=== PATIENT | female | born 1955 | race Caucasian/White ===

== ENCOUNTER 2024-08-25 15:08 | Inpatient (IN) | payer MEDICARE, MEDICAID, SELFPAY ==
[2024-08-25] VITALS (14 sets, daily range): BP systolic 132–216; BP diastolic 78–124; PULSE 78–124; RESP 16–18; TEMP 36.6–37.3; O2SAT 92–100
--- NOTE | ~2024-08-25 | XR_ITS ---
XR chest 1V portable Ordering provider: Johnathan Gallaghre MD History: 69 years Female with . weakness . Comparison: None. FINDINGS: MEDIASTINUM: The cardiac silhouette is not enlarged. LUNGS: No effusions or pneumothorax. Opacity is seen in the left perihilar area in the upper lobe whi ch may be focal pneumonia or a mass. Underlying emphysematous changes are noted OTHER: No free air under the diaphragm. IMPRESSION: Opacity in the left upper lobe which may be focal pneumonia versus a mass. Further evaluation advised Reviewed, dictated and finalized at location A. IMPRESSION: Opacity in the left upper lobe which may be focal pneumonia versus a mass. Furt her evaluation advised
--- NOTE | ~2024-08-25 | MR_ITS ---
EXAMINATION: MR thoracic spine wo/w con DATE: 08/28/2024 15:19 INDICATION: Leg weakness. Possible metastatic disease. TECHNIQUE: Magnetic resonance imaging (MRI) of the thoracic spine was performed without and with 10 m L Multihance intravenous contrast. Sagittal localizer T1-weighted FSE of the cervicothoracic spine wa s obtained. Sequences included sagittal T2-weighted FSE, sagittal T2-weighted FS FSE, sagittal T1-mitchel ghted FSE and axial T1-weighted SE. Postcontrast sequences included axial T2-weighted FSE, sagittal T 1-weighted FS FSE, and axial T1-weighted FS SE. COMPARISON: CT dated 08/25/2024 FINDINGS: Alignment is normal.Vertebral body heights are normal. There is mild disc height loss at multiple lev els from T2-T3 through T8-T9 and moderate disc height loss with mild anterior degenerative endplate c hanges at T9-T10. There is an expansile destructive an enhancing marrow replacing processes consistent with metastatic disease. These include at the T1 vertebral body extending into the left-sided posterior elements and extraosseous extension into the left side of the epidural space resulting in moderate central canal s tenosis, and the left C7-T1 and T1-T2 neural foramina with severe neural foraminal stenosis and into the adjacent posterior left T1-T2 intercostal space and into the immediately adjacent subpleural soft tissues. Additional large lesion at T8 extending into the left-sided posterior elements and the adjacent poste rior aspect of the left eighth rib. There is also significant extraosseous extension including in the epidural space resulting in significant mass effect on the left side of the thecal sac with severe c entral canal stenosis from the inferior midportion of T7 to the midportion of T9. The mass completely fills the T7-T8 and T8-T9 neural foramina and extends laterally to involve of the T7-T8 and T8-T9 po sterior intercostal spaces, the overlying chest wall and with deeper subpleural involvement. The bone lesions and surrounding soft tissue mass measure 9.3 cm medial to lateral, 6.0 cm craniocaudally and 6.1 cm AP. There is increased T2 cord signal extending short distance proximal and distal to the reg ion of severe stenosis Finally there is a smaller lesion involving the posterior right ninth rib with extraosseous extension from the T9-T10 neural foramen and extending into the adjacent subpleural right paraspinal soft tiss ues. IMPRESSION: 1. The marrow replacing lesions consistent with metastatic disease centered at T1, T8 and T9 with pro minent extraosseous extension. This most notable for secondary moderate central canal stenosis at T1, severe at T7-T9 and severe neural foraminal stenosis on the left at T1-T2, C7-T1 and T1-T2 as well a s at T7-T8 and T8-T9 and on the right at T9-T10. 2. Increased cord signal at T7 and T9 on either side of the severe central canal stenosis. 3. Otherwise mild to moderate thoracic spondylosis. Reviewed, dictated and finalized at location B. IMPRESSION: 1. The marrow replacing lesions consistent with metastatic disease centered at T1, T8 and T9 with prominent extraosseous extension. This most notable for seco ndary moderate central canal stenosis at T1, severe at T7-T9 and severe neural foraminal stenosis on the left at T1-T2, C7-T1 and T1-T2 as well as at T7-T8 an d T8-T9 and on the right at T9-T10. 2. Increased cord signal at T7 and T9 on either side of the severe central celi l stenosis. 3. Otherwise mild to moderate thoracic spondylosis.
--- NOTE | ~2024-08-25 | CT_ITS ---
CT abdomen pelvis wo/w con Ordering provider: Jonathan Nguyen MD History: 69 years Female with . hydronephrosis and possible liver mass . Comparison: None. Technique: CT abdomen and pelvis with IV and without oral contrast. Automated exposure control and it erative reconstruction technique were employed. The dose-length product was 413.10 mGy-cm. 100 mL Omn ipaque 350 was given IV. Findings: VISUALIZED LOWER CHEST: Underlying emphysematous changes. Dependent atelectatic changes. UPPER ABDOMINAL ORGANS: Liver: Hypodensity seen in the right lobe of the liver segment 8 measuring 1.6 x 1.4 cm. Another one is seen in segment #4 measuring 2 cm x 1.6 cm. Another one is also noted in the right lobe of the jose cruz er segment #7 measuring 1 cm which raises the possibility of metastatic lesions. Ultrasound evaluatio n to confirm the solid versus cystic nature. Gallbladder: Normal. Spleen: Normal. Stomach/duodenum: Normal. Pancreas: Normal. Adrenals: Normal. Kidneys: Bilateral moderate hydronephrotic changes PELVIC ORGANS: The bladder is shows thickened wall. Palomo's catheter is seen in the bladder with air. BOWEL AND MESENTERY: Colon: No evidence of diverticulitis. Fecal material is loaded in the colon.. Normal appendix. Small Bowel: Slightly thickened wall of the jejunal loops which may indicate enteritis. Clinical nohemy elation advised. No obstruction. Peritoneum/mesentery: No free air or free fluid. No mesenteric lymphadenopathy. RETROPERITONEUM: Mild atheromatous disease of the abdominal aorta. Prominent vessels are seen in bot h sides of the pelvis suggestive of pelvic congestion syndrome. No retroperitoneal lymphadenopathy. MUSCULOSKELETAL: Superficial soft tissues: Soft tissue density is seen in the anterior abdominal wall measuring 1.4 cm . Otherwise, The superficial soft tissues are normal. Bones: Age appropriate degenerative changes of the spine. Multiple hypodensities in the vertebrae and iliac bones which may indicate osteopenia versus metastatic lesions. Multiple myeloma should be cons idered. Follow-up oBone scan is advised for further evaluation. IMPRESSION: 1. No evidence of appendicitis, diverticulitis or intestinal obstruction. 2. Multiple hypodensities in the liver which are highly suggestive of metastatic lesions. Further ev aluation advised. 3. Bilateral hydronephrotic changes with thickened wall of the urinary bladder. 4. Thickened wall of the jejunal small bowel loops suggestive of enteritis. 5. Multiple hypodensities in the bones which may indicate osteopenia versus metastatic lesions versu s multiple myeloma. Further evaluation advised. 6. Constipation. 7. Congested vessels in the pelvis suggestive of pelvic congestion syndrome. Reviewed, dictated and finalized at location A. IMPRESSION: 1. No evidence of appendicitis, diverticulitis or intestinal obstruction. 2. Multiple hypodensities in the liver which are highly suggestive of metastat ic lesions. Further evaluation advised. 3. Bilateral hydronephrotic changes with thickened wall of the urinary bladder . 4. Thickened wall of the jejunal small bowel loops suggestive of enteritis. 5. Multiple hypodensities in the bones which may indicate osteopenia versus me tastatic lesions versus multiple myeloma. Further evaluation advised. 6. Constipation. 7. Congested vessels in the pelvis suggestive of pelvic congestion syndrome.
--- NOTE | ~2024-08-25 | MR_ITS ---
EXAMINATION: MR lumbar spine wo con DATE: 08/27/2024 13:12 INDICATION: leg weakness, possible metastatic CA . TECHNIQUE: Magnetic resonance imaging (MRI) of the lumbar spine was performed without intravenous con trast. Sequences included sagittal T2-weighted FSE, sagittal T2-weighted FS FSE, sagittal T1-weighted FSE, and axial T2-weighted FSE. Originally ordered with contrast however the patient could not carmen ate complete examination. COMPARISON: CT abdomen and pelvis 08/26/2024 FINDINGS: The last fully formed and hydrated disc is designated L5-S1. T1 hypointense marrow lesion i nvolving the right L4 pedicle extending into the bilateral inferior articulating facets and spinous p rocess. Conus terminates at L1-2. Multilevel loss of disc hydration. Lobulated 2.3 x 1.1 cm extradura l lesion posteriorly at the level of L4, intermediate signal intensity on STIR and T2 and low signal intensity on T1. The following disc levels are specifically discussed: T11-T12: The disc does not extend beyond the endplate margin. There is no facet joint osteoarthritis. There is no neural foraminal stenosis. There is no central canal stenosis. T12-L1: The disc does not extend beyond the endplate margin. There is mild facet joint osteoarthritis . There is no neural foraminal stenosis. There is no central canal stenosis. L1-L2: Mild diffuse bulge. There is mild facet joint osteoarthritis. There is no neural foraminal srikanth nosis. There is no central canal stenosis. L2-L3: Mild diffuse bulge. There is moderate facet joint osteoarthritis. There is mild bilateral neur al foraminal stenosis. There is no central canal stenosis. L3-L4: Mild diffuse bulge. There is moderate facet joint osteoarthritis. There is mild bilateral neur al foraminal stenosis. There is no central canal stenosis. L4-L5: Moderate diffuse bulge. There is moderate facet joint osteoarthritis. There is moderate bilate ral neural foraminal stenosis. There is mild central canal stenosis. L5-S1: Minimal diffuse bulge. There is moderate facet joint osteoarthritis. There is mild neural fora leoncio stenosis. There is no central canal stenosis. IMPRESSION: Metastatic lesion involving the posterior elements of L4, with extradural extension. Reviewed, dictated and finalized at location K. IMPRESSION: Metastatic lesion involving the posterior elements of L4, with extradural exten dylon.
--- NOTE | ~2024-08-25 | CT_ITS ---
CT brain wo con Ordering provider: Johnathan Gallagher MD History: 69 years Female with . weakness . Comparison: None. Technique: CT of the head without contrast. Radiation reduction technique utilized.The dose-length pr oduct was 681 mGy-cm. FINDINGS: BRAIN PARENCHYMA AND CSF SPACES: Mild leukoaraiosis and diffuse cortical atrophy. Mild atheromatous d isease. No midline shift, mass effect or hemorrhage. The brain parenchyma and CSF spaces are otherwi se normal. VISUALIZED PARANASAL SINUSES: Well aerated. MASTOIDS: Well aerated. BONES: The bones appear intact. SOFT TISSUES: Visualized nasopharynx is normal. Superficial soft tissues are normal. IMPRESSION: No acute intracranial findings. Reviewed, dictated and finalized at location A.
--- NOTE | ~2024-08-25 | CT_ITS ---
CT diagnostic chest wo con Ordering provider: Johnathan Gallagher MD History: 69 years Female with . mass? . Comparison: None. Technique: CT chest without IV contrast. Radiation reduction technique utilized.The dose-length product was 155.47 mGy-cm. FINDINGS: VISUALIZED THORACIC INLET: Normal. MEDIASTINUM: Aorta/coronary arteries: Mild atheromatous disease. Heart/other: The heart is not enlarged. Lymph nodes: No mediastinal or hilar adenopathy. Precarinal lymph node measuring 1 cm. LUNGS: Pleural based mass is seen in the left lower lobe superior segment with adjacent 8th rib destr uction suggestive of malignancy which measures 7.5 x 3.1 x 5.3 cm. No infiltrates or effusions. No pn eumothorax. VISUALIZED UPPER ABDOMEN: Hyperdensity in the right lobe of the liver measuring 1.4 cm which may be a mass. Further evaluation advised. Bilateral hydronephrotic changes. Sella Otherwise, the visualized upper abdomen is normal. MUSCULOSKELETAL: Soft tissues: The superficial soft tissues are normal. Bones: Age appropriate degenerative changes of the spine. Sclerotic changes in the 1st thoracic vert ebra. Further evaluation advised. IMPRESSION: 1. No acute cardiopulmonary pathology. 2. Mass adjacent to the left eighth rib destruction which may be metastatic versus mesothelioma. Fur ther evaluation advised. 3. Hypodensity in the liver which is highly suggestive of a mass. Further evaluation advised. 4. Bilateral hydronephrotic changes. 5. Sclerotic changes in the first thoracic vertebra suggestive of metastatic lesion. Further evaluat ion advised. Reviewed, dictated and finalized at location A. IMPRESSION: 1. No acute cardiopulmonary pathology. 2. Mass adjacent to the left eighth rib destruction which may be metastatic ve rsus mesothelioma. Further evaluation advised. 3. Hypodensity in the liver which is highly suggestive of a mass. Further eval uation advised. 4. Bilateral hydronephrotic changes. 5. Sclerotic changes in the first thoracic vertebra suggestive of metastatic l esion. Further evaluation advised.
--- OUTSIDE RECORDS SUMMARY | 2024-08-25 15:10 | XMS_ITS | Continuity of Care Document ---
Author Organization [facility] Address [address] [place] [address] Phone Care Team Providers Care Rehabilitation Supervisor Name Role Phone Villasenor OD, Javi Unavailable Unavailable Advance Directives Directive Yes / No Effective Date File Name No Information Encounters Encounter Description Practice Location Reason(s) For Visit Diagnoses Date Provider Providers Copied on Encounter [facility], [address], [place], [place], [id number], [place] tel:[phone] [facility] No Information Nov-2 6-200 5 Villasenor OD Javi. [address] [facility] , [address], [place], [address], [place]. tel:[phone] Family History Family Member Type Diagnosis Age At Onset No Information Payers Payer name Insurance type Covered green party ID Authoriza tion(s) Medicaid [facility] [id number] Social History Type Description Quantity Date Captured Comments Sex Female Smoking Status No Information Chief Complaint And Reason For Visit No Information Reason For Referral Reason For Referral No Information History Of Present Illness Encounter Date Complaint History Of Prese nt Illness No Information Functional Status Date Functional Assessmen t No Information Instructions Date Instruction Additional Infor mation No Information Assessments Type Assessment Date No Information Patient Care Teams Name Effective Dates (start - stop) Status Members No Information
--- OUTSIDE RECORDS SUMMARY | 2024-08-25 15:10 | XMS_ITS | Clinical Summary ---
Author Organization [facility] Address [address] [place] [address] Care Team Providers Care Central Control Room Operator Name Role Phone Patti Cole APRN Primary Care Provider [phone] Allergies Active Allergy Reactions Criticality Noted Date Comments Codeine 08/07/2023 Egg-Derived Products 08/07/2023 Peanut-Containing Drug Products 07/24 Medications albuterol HFA (PROVENTIL HFA;VENTOLIN HFA) 108 (90 Base) MCG/ACT inhaler INHALE 2 PUFFS BY MOUTH THREE TIMES DAILY FOR 10 DAYS NEEDED Active budesonide-form oterol (SYMBICORT) 80-4.5 MCG/ACT inhaler Inhale 2 puffs in the morning and 2 puffs in the evening. Active spironolactone (ALDACTONE) 25 MG tablet Take 25 mg by mouth 1 (one) time each day if needed (swelling) Active rosuvastatin (CRESTOR) 5 MG tablet Take 1 tablet (5 mg total) by mouth 1 (one) time each day 90 tablet 1 09/15/2023 Active Active Problems Problem Noted Date Diagnosed Date Mixed hyperlipidemia 09/15/2023 H/O: multiple allergies 08/11/2023 Stage 1 chronic kidney disease 08/11/2023 Hypo-osmolality and hyponatremia 08/11/2023 Edema 08/11/2023 Hypertension 08/11/2023 Requires continuous home oxygen supply Chronic respiratory failure with hypoxia 024 Dental caries extending into dentin 08/11/2023 Dyspnea 08/06/2023 Chronic obstructive pulmonary disease 03/09/2018 Resolved Problems Problem Noted Date Diagnosed Date Resolved Date 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 Encounters Date Type Department Care Team Description 06/27/2024 [facility] Only [facility] [address] [address] 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, 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 Hypo-osmolality and hyponatremia (Primary Dx); Stage 1 chronic kidney disease; Hypertension; Mixed hyperlipidemia; Abnormal finding of blood chemistry, not otherwise specified; Urinary tract infection, not otherwise specified from Last 3 Months Social History Tobacco Use Types Packs/Day Years Used Date Smoking Tobacco: Never Assessed Comments Unknown Sex and Gender Information Value Date Recorded Sex Assigned at Not on file Legal Sex Female 11:48 AM EDT Gender Identity Not on file Sexual Orientation Not on file Last Filed Vital Signs Vital Sign Reading Time Taken Comments Blood Pressure 120/70 09/15/2023 10:46 AM CDT Pulse 68 09/15/2023 10:46 AM CDT Temperature 36.1 C (97 F) 09/15/2023 10:46 AM CDT Respiratory Rate 18 09/15/2023 10:46 AM CDT Oxygen Saturation 97% 09/15/2023 10:46 AM CDT Inhaled Oxygen Concentration - - Weight 49 kg (108 lb) 09/15/2023 10:46 AM CDT Height - - Body Mass Index - - Plan of Treatment Health Maintenance Due Date Last Done Comments Breast Cancer Screening 1955 Pneumococcal Vaccine: 50+ Ye ars (1 of 2 - PCV) 1972 Colorectal Cancer Screening: Annual FOBT 2002 Colorectal Cancer Screening: Colonoscopy 2002 Colorectal Cancer Screening: Sigmoidoscopy 2002 Influenza Vaccine (#1) 2024 Hepatitis B Vaccine Aged Out No longe r eligible based on patient's age to complete this topic Insurance Medicare Medicaid [place] Care Teams Central Control Room Operator Relationship Specialty Start Date End Date Patti Cole APRN [facility] Internal Med [facility] [address] [facility], [address] [place] [address] PCP - General 06/18/23
--- OUTSIDE RECORDS SUMMARY | 2024-08-25 15:10 | XMS_ITS | Data Portability ---
Author Organization [facility] Address [address] [place] [address] Assessment No assessment recorded. Plan of Treatment Reminders Order Date Submit Date Provider Last Modified By Organization Details Last Modified Time Details Appointments None recorded . Lab lipid panel, serum 2019 020 [facility], [address] [place] [address], [facility] [address], [place], [address], 0 14:10:42 HbA1c (hemoglo bin A1c), blood 2019 020 [facility], [address] [place] [address], [facility] [address], [place], [address], 0 14:14:45 TSH + free T4, serum 2019 020 [facility], [address] [place] [address], [facility] [address], [place], [address], 0 14:46:14 CBC w/ auto diff 2019 020 [facility], [address] [place] [address], [facility] [address], [place], [address], 0 14:09:40 CMP, serum or plasma 2019 020 [email or web address] [facility], [address] [place] [address], [facility] [address], [place], [address], 0 13:37:07 vitamin D, 25-hydro xy, total, serum 2019 020 [address], [address], [place], [address], 0 14:09:40 vitamin B12 + folate, serum or blood 2019 020 [address], [address], [place], [address], 0 14:09:41 iron + total iron-bin ding capacity (TIBC), serum 2019 020 [address], [address], [place], [address], 0 14:09:41 ferritin , serum or plasma 2019 020 [address], [address], [place], [address], 0 14:10:11 CBC w/ auto diff 2018 019 Celeste [address], [address], [place], [address], 9 16:48:07 erythroc yte sediment ation rate by westergr en method 2018 019 [address], [address], [place], [address], 9 16:48:07 C reactive protein, QN, serum or plasma 2018 019 [address], [address], [place], [address], 9 16:48:05 CMP, serum or plasma 2018 019 [email or web address], [address] [facility] [address], [address], [place], [address], 9 09:58:47 JAMIL (antinuc lear antibodi es) screen, serum 2018 019 [facility], [address] [place] [address] [address], [address], [place], [address], 9 16:48:04 rf (rheumat oid factor), serum 2018 019 [facility], [address] [place] [address], [address], [place], [address], 9 16:48:04 TSH, ultra-se nsitive, serum 2018 019 [facility], [address] [facility] [address], [address], [place], [address], 9 16:48:07 vitamin D, 25-hydro xy, total, serum 2018 019 [facility], [address] [place] [address], [address], [place], [address], 9 16:48:07 vitamin B12 + folate, serum or blood 2018 019 [facility], [address] [place] [address], [address], [place], [address], 9 16:48:06 CK (creatin e kinase), total, serum 2018 019 [facility], [address] [place] [address], [address], [place], [address], 9 16:48:07 lipid panel, serum 2018 019 [facility], [address], [address], [place], [address], 9 16:47:16 Referral rheumato logist referral - Please call patient to schedule appt. Thank you 2018 019 [facility] Care Physician Referral Management, [address] [facility], [address], [place], [address], 9 11:17:04 allergis t referral - Please eval and treat . Thank you 2018 019 [email or web address] Not available 07:52:18 physical therapy back referral - Please call patient to schedule appt. Thank you 2018 019 [facility] Physical, Occupational & Speech Medicine & Rehab, [address] [place], [address], 9 10:33:52 endocrin ology referral - She is worried about Hashimot o's Please eval and teat 2018 019 [facility] [place], [address] , [place], [address], 9 10:14:06 pulmonol ogist referral - Please call patient to schedule appt. Thank you 2017 018 [facility] Pulmonology, [address] [facility], [place], [address], 9 11:10:38 Procedures None recorded . Surgeries None recorded . Imaging None recorded . Medication Orders budesoni de-formo terol HFA 80 mcg-4.5 mcg/actu ation aerosol inhaler 2019 020 [facility]30257, [address], [place], [place], [id number], 0 14:08:38 loratadi ne 10 mg tablet 2018 019 [facility] #94423, [address], [place], [place], [id number], 0 13:57:03 bupropio n HCl XL 150 mg 24 hr tablet, extended release 2018 019 [facility] #95999, [address], [place], [place], [id number], 0 13:56:27 Symbicor t 160 mcg-4.5 mcg/actu ation HFA aerosol inhaler 2018 019 [facility] #02114, [address], [place], [place], [id number], 9 16:56:48 Ventolin HFA 90 mcg/actu ation aerosol inhaler 2018 019 [facility] #79072, [address], [place], [id number], 9 16:56:49 loratadi ne 10 mg tablet 2018 019 [facility] #11346, [address], [place], [id number], 0 13:57:03 Chantix Starting Month Box 0.5 mg (11)-1 mg (42) tablets in dose pack 2018 019 [facility] #10384, [address], [place], [place], [id number], 0 13:56:32 triamcin olone acetonid e 0.1 % topical ointment 2018 019 [facility], [address] , [place], [place], [id number], 0 13:57:13 loratadi ne 10 mg tablet 2017 018 [email or web address] Not available 0 13:57:03 Advair Diskus 250 mcg-50 mcg/dose powder for inhalati on 2017 019 [email or web address] Not available 9 16:20:59 Lyrica 50 mg capsule 2015 016 [facility], [address] , [place], [place], [id number], 8 16:48:15 Patient TargetsNo targets recorded. Patient InstructionsNo instructions recorded. Reason for Referral Credit Card Control Clerk Referral for D yspnea Please call patient to schedule appt. Thank you Referring Physician: Family Carroll Maloney, Encounter Date: 02/19/2018 Please call patient to sched ule appt. Thank you Referring Physician: Family Carroll Maloney, Encounter Date: 06/25/2018 Lens Grinder Referral for Fibromyalgia fibromyalgia Please call patient to schedule appt. Thank you Referring Physician: Family Carroll Maloney, Encounter Date: 06/25/2018 Endocrinology Referral for Zena morillo she [place] She is worried about Neptali's Please eval and teat Referring Physician: Family Carroll Maloney, Encounter Date: 06/25/2018 Window And Door Installer Referral for Aller gic rhinitis she is sensitive to a number of chemicals : fragrances Please eval and treat . Thank you Referring Physician: Family Carroll Maloney, Encounter Date: 06/25/2018 Results Created Date Observation Date Name Description Value Unit Range Abnormal Flag Note LastModifiedBy Organization Detail LastModifiedTime 10/14/19 19 10/12/2018 XR, cervi guillermo spine , 4 or 5 view No observ ation record ed. [facility] (Imaging) [address], [place], [address], 11/12/2018 15:28:22 Result Notes Documentation Provider Name and Address Organization Details Recorded Time Tsh + Free T4, Serum : CBC, CMP, Lipids, Vitamin D, ESR, CRP, RF, JAMIL Kate Levy MA null, [place] [facility] 09/12/2019 10:54:44 Problems Name Problem SNOMED Code Status Onset Date Resolution Date Notes Provider Name and Address Organization Details Recorded Time Chronic obstructive pulmonary disease 49156679 Active 2018 Miguel Carter PA-C Attn: Accountin g,[address] [facility], [place], [address], [place] [facility] 9 21:06:24 Low back pain 128440778 Active 2018 Miguel Carter PA-C Attn: Accountin g,[address] [facility], [place], [address], [place] [facility] 9 17:37:12 Fatigue 49366393 Active 2018 Miguel Carter PA-C Attn: Accountin g,[address] [facility], [place], [address], [place] [facility] 9 17:41:34 Eczema 48382330 Active 2018 Miguel Carter PA-C Attn: Accountin g,[address] [facility], [place], [address], [place] [facility] 9 17:47:59 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 Miguel Carter PA-C Attn: Accountin g,[address] [facility], [place], [address], [place] [facility] 9 16:46:51 Failure to gain weight 34379520 Active 2018 Miguel Carter PA-C Attn: Accountviridiana g,[address] [facility], [place], [address], [place] [facility] 9 17:00:26 Abnormal weight 65477533 Active 2018 Miguel Carter PA-C Attn: Accountviridiana g,[address] [facility], [place], [address], [place] [facility] 9 17:02:11 Left carotid artery stenosis 7917419511369 03 Active 2018 Miguel Carter PA-C Attn: Accountviridiana g,[address] [facility], [place], [address], [place] [facility] 9 23:54:23 Dyspnea 972328058 Active Miguel Carter PA-C Attn: Accountviridiana g,[address] [facility], [place], [address], [place] [facility] 6 16:09:09 Allergic rhinitis 84713411 Active Miguel Carter PA-C Attn: Accountviridiana g,[address] [facility], [place], [address], [place] [facility] 6 16:09:09 Tobacco user 994844693 Active Miguel Carter PA-C Attn: Accountviridiana g,[address] [facility], [place], [address], [place] [facility] 6 16:09:09 Fibromyalgi a 799833250 Active 2015 Miguel Carter PA-C Attn: Abhijeet g,[address] [facility], [place], [address], [place] [facility] 6 15:13:54 Problem Notes None recorded. Procedures Surgical History Date Name Laterality Status Provider Name and Address Organization Details Recorded Time 5 Back Surgery completed Cecilia Clarke MA [place] - [facility] 10/22/2015 15:48:57 Imaging Results None recorded. Procedure Notes None recorded. Medical Equipment None Reported. Allergies No known drug allergies Medications Name Sig Start Date Stop Date Status Note LastModified by Organization Details LastModified Time prednisone 20 mg tablet Take 2 tablets twice a day by oral route for 2 days. 07/31 completed Not Available Not Available Not Available triamcinolo ne acetonide 0.1 % topical ointment APPLY A THIN LAYER TO THE AFFECTED AREA(S) BY TOPICAL ROUTE 2 TIMES PER DAY 07/31 completed Not Available Not Available Not Available Advair Diskus 250 mcg-50 mcg/dose powder for inhalation Inhale 1 puff twice a day by inhalatio n route for 30 days. 10/22 completed Not Available Not Available Not Available albuterol sulfate HFA 90 mcg/actuati on aerosol inhaler INHALE 2 PUFFS BY MOUTH THREE TIMES DAILY FOR 10 DAYS NEEDED active Not Available Not Available No t Available loratadine 10 mg tablet Take 1 tablet every day by oral route for 30 days. 07/31 completed Not Available Not Available Not Available hydroxyzine pamoate 25 mg capsule Take 1 capsule 3 times a day by oral route as needed for 30 days. 02/19 completed Not Available Not Available Not Available bupropion HCl XL 150 mg 24 hr tablet, extended release Take 1 tablet every day by oral route in the morning for 30 days. 07/31 completed Not Available Not Available Not Available Lyrica 50 mg capsule Take 1 capsule every day by oral route at bedtime for 5 days. 02/19 completed Not Available Not Available Not Available Symbicort 160 mcg-4.5 mcg/actuati on HFA aerosol inhaler active Not Available Not Available Not Available budesonide- formoterol HFA 80 mcg-4.5 mcg/actuati on aerosol inhaler INHALE 2 PUFFS BY MOUTH TWICE DAILY active Not Available Not Available No t Available Chantix Starting Month Box 0.5 mg (11)-1 mg (42) tablets in dose pack Take 1 startr pk by oral route. 07/31 completed Not Available Not Available Not Available Incruse Ellipta 62.5 mcg/actuati on powder for inhalation 07/31 completed Not Available Not Available Not Available Vitals Date Recorded Body weight Body temperature Oxygen saturation Oxygen saturation in Arterial blood by Pulse oximetry Heart rate Systolic And Diastolic Provider Name and Address Organization Details Last Updated DateTime 9 92147.1 1 g 97.8 [degF] 94 % 94 % 66 /min 132/62 mm[Hg] Deonna Wang MA [facility] 9 17:25:45 Date Recorded Body weight Oxygen saturation Oxygen saturation in Arterial blood by Pulse oximetry Heart rate Systolic And Diastolic Provider Name and Address Organization Details Last Updated DateTime 9 31349.3 7 g 93 % 93 % 66 /min 100/60 mm[Hg] Allegra Garcia MA [facility] 9 16:23:59 Date Recorded Body height Body weight Body mass index (BMI) Oxygen saturation Oxygen saturation in Arterial blood by Pulse oximetry Heart rate Body temperature Systolic And Diastolic Provider Name and Address Organization Details Last Updated DateTime 6 163.83 cm 46511.4 4 g 16.8 kg/m2 98 % 98 % 57 /min 98 [degF] 122/58 mm[Hg] Cecilia Clarke MA [facility] 6 14:34:39 Date Recorded Body weight Oxygen saturation Oxygen saturation in Arterial blood by Pulse oximetry Heart rate Systolic And Diastolic Provider Name and Address Organization Details Last Updated DateTime 8 92719.5 2 g 92 % 92 % 66 /min 150/90 mm[Hg] Allegra Garcia MA [facility] 8 16:51:32 Social History Question Answer Notes LastModified by Organizat ion Details LastModified Time Tobacco Smoking Status Current Every Day Smoker Cecilia Clarke MA null, [facility] 10/22/2015 15:50:27 What Was The Date Of Your Most Recent Tobacco Screening? 08/01/2019 Information not available 08/01/2019 How Much Tobacco Do You Smoke? 0.5 PPD Information not available 10/22/2015 On What Date Was Tobacco Cessation Counseling Provided? 08/01/2019 Information not available 08/01/2019 How Many Years Have You Smoked Tobacco? 38 Information not available 10/22/2015 Sex: Unknown Functional Status None recorded. Mental Status None recorded. Family History Relationship Description Onset Age of this Age Resolved Age Notes LastModified by Organization Details LastModified Time Mother Malignant neoplastic disease [email or web address] Not available 2015 15:50:03 Father Heart disease 61 [email or web address] Not available 2015 15:50:03 Father Diabetes mellitus [email or web address] Not available 2015 15:50:03 Father History of multiple allergies mnelsonma Not available 2015 15:50:03 Medical History Condition Response Muscle, Joint, or Bone Problems Y Kidney or Bladder Problems Y Allergies Y Gynecological HistoryNo gynecological history recorded. Obstetrics History GPAL:G 0 P 0 0 0 0 Past Encounters Encounter ID Performer Location Encounter Start Date Encounter Closed Date Diagnosis/Indication Diagnosis SNOMED-CT Code Diagnosis ICD10 Code Diagnosis Note [id number] MD Jeaneth Vázquez (Adult Med) [address] [place] [phone] 10/22/2015 15:37:18 10/22/2015 16:25:24 Dyspnea 893845793 R06.00 Allergic rhinitis 548661 04 J30.9 Tobacco user 163137982 Z 70.0 half a pack per day Thyroid di sorder screening 556869102 Z13.29 Hyperlipid emia screening 328339324 Z13.220 Family his tory of diabetes mellitus 055015194 Z83.3 Anemia screening 8376254 07 Z13.0 [id number] DION June (Adult Med) [address] [place] [id number] 02/01/2016 14:12:42 02/01/2016 15:28:10 Tobacco user 277911698 Z72.0 half a pack per day Allergic rhinitis 443607 04 J30.9 Fibromyalgia 431186719 M 79.7 [id number] MD Jeaneth Vázquez (Adult Med) [address] [place] [id number] 02/19/2018 16:36:52 02/19/2018 17:15:16 Dyspnea 410422885 R06.00 Tobacco user 558412876 Z 70.0 half a pack per day Allergic rhinitis 529291 04 J30.9 Fibromyalgia 470588834 M 79.7 [id number] MD Jeaneth Vázquez (Adult Med) [address] [place] [id number] 06/25/2018 17:16:04 06/28/2018 08:58:02 Chronic obstructive pulmonary disease 18589314 J44.9 Allergic rhinitis 610320 04 J30.9 Tobacco user 079901104 Z 72.0 half a pack per day Fibromyalgia 262435182 M 79.7 Low back pain 502073399 M54.5 Fatigue 11153788 R53.83 Eczema 39676719 L30.9 [id number] Gianna Pimentel MD [facility] (Adult Med) [address] [place] [id number] 10/22/2018 16:00:28 10/26/2018 09:11:42 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 Fibromyalgia 827898288 M 79.7 Tobacco user 991876687 Z 72.0 half a pack per day Chronic ob structive pulmonary disease 97660330 J44.9 Abnormal weight 20874258 R63.6 Allergic rhinitis 758651 04 J30.9 [id number] Gianna Pimentel MD [facility] (Adult Med) [address] [place] [id number] 08/01/2019 08:38:48 08/01/2019 14:12:51 Chronic obstructive pulmonary disease 19739644 J44.9 Fibromyalgia 669767302 M 79.7 Low back pain 411599310 M54.5 Allergic rhinitis 961317 04 J30.9 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 Fatigue 37362765 R53.83 Left carot id artery stenosis 9832887900 71114 I65.22 Health Concerns Section Related Observation LastModified by Organization Detai ls LastModified Time None Recorded Concern Status LastModified by Organization Details LastModified Time None Recorded Advance Directives Directive None Recorded Payers Insurance Date Sequence Insurance Name Policy Number Policy De La Paz Covered Member ID De La Paz Member ID Guarantor Name 06/24/2018 1 [facility] PRIOR TO 08/23/2020 (MEDICAID REPLACEMENT - HMO) Kiley Pierre [id number] Kiley Pierre 09/30/2019 [place] [facility] Kiley Pierre [id number] Kiely Pierre 06/28/2018 2 [place] [facility] Kiley Pierre [id number] Kiley Pierre 09/30/2019 1 [place] Kiley Pierre [id number] Kiley Ignacio 02/01/2020 2 [place]CON[place] WHEN MEDICARE OR MEDICARE REPLACEMENT PRIMARY) Kiley Ignacio [id number] Kiley Ignacio 02/19/2018 1 [facility] (MEDICAID HMO) [id number] Kiley Ignacio [id number] Kiley Pierre Notes Date Note Type Note Provider Name and Address Organization Details Recorded Time 02/19/2018 text/html no fever .....do es smoke tobacco Miguel Carter PA-C Attn: Accounting[address] [facility], [place], [address], [facility] 02/21/2018 17:54:50 06/25/2018 text/html aching all over ; is interested in seeing a novelty chain maker .... Miguel Carter PA-C Attn: Accounting[address] [facility], [place], [address], [facility] 06/29/2018 14:39:04 08/01/2019 text/html she has not had her blood drawn yet .... Miguel Carter PA-C Attn: Accounting,[address] [facility], [place], [address], [facility] 08/01/2019 17:53:31 OBGyn Episode No OBEpisode recorded.
--- NOTE | 2024-08-25 18:05 | PC.NURSE ---
Pt. pressed her call light stating she needs to urinate and have a BM. Pt. assisted with getting to the commode. Pt. requires 2x RNs to get to the commode. After sitting on the commode, pt. did not produce a BM or urinate. Pt. moved to room 19.
--- OUTSIDE RECORDS SUMMARY | 2024-08-25 19:23 | XMS_ITS | Continuity of Care Document ---
Author Organization [facility] Address [address] [address] [place] [address] Phone Care Team Providers Care Property Maintenance Supervisor Name Role Phone Villasenor OD, Javi Unavailable Unavailable Advance Directives Directive Yes / No Effective Date File Name No Information Encounters Encounter Description Practice Location Reason(s) For Visit Diagnoses Date Provider Providers Copied on Encounter [facility], [address], [place], [place], [id number], [place] tel:[phone] SEC [facility] No Information Nov-2 6-200 5 Villasenor OD Javi. [address] [facility] , [address], [place], [address], [place]. tel:[phone] Family History Family Member Type Diagnosis Age At Onset No Information Payers Payer name Insurance type Covered alliance party ID Authoriza tion(s) Medicaid [facility] [id number] Social History Type Description Quantity Date Captured [...]
--- OUTSIDE RECORDS SUMMARY | 2024-08-25 19:23 | XMS_ITS | Clinical Summary ---
Author Organization [facility] Facility Address [address] [place] [id number] Care Team Providers Care Operater Name Role Phone Patti Cole APRN Primary Care Provider [phone] Allergies Active Allergy Reactions Criticality Noted Date [...] Department Care Team Description 06/27/2024 Orders Only [place] [facility] [address] [address] 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, HOSPICE HOME HEALTH AIDE Hypo-osmolality and hyponatremia (Primary Dx); Stage 1 [...] topic Insurance Medicare Medicaid [place] Care Teams Operater Relationship Specialty Start Date End Date Patti Cole APRN [facility] Internal Med [facility] [address] [facility] [address] [place] [address] PCP - General 06/18/23
[2024-08-25] MEDS: LACTATED RINGERS 1,000 ML 999 ML IV CONT (21:18)
--- NOTE | 2024-08-25 21:33 | ED_ITS ---
HPI - Extremity Problem General Chief complaint: Extremity Problem,Nontraumatic Stated complaint: leg pain/numb x 2 days Time Seen by Provider: 08/25/24 19:03 History of Present Illness HPI Narrative: 69-year-old female with history of chronic respiratory failure on 2 L nasal cannula at home. She presents to the emergency department as she has been having generalized weakness and inability to walk recently. She states that she just feels like her legs are giving out on her and she has been dealing with neuropathy. She has difficulty ambulating and states that she previously was at rehab for this. Her is not present but states to nursing staff that he has been picking her up off the ground she has been falling frequently edges pending urine bed. They were not able to take care of her at home at this time. Patient herself is a very poor historian but acting at her baseline mentation and awake alert oriented. She is complaining of worsening pain she describes as pins and needles in her legs and when she tries to ambulate she gets weak and feels like her legs give out on her and she falls. No reported blood thinner use but has hit her head. No urinary symptoms. She is at her baseline oxygen at this time with no chest pain or difficulty in breathing. No recent illnesses, diarrhea, cough, fever. Was otherwise in her normal state of health. Related Data Home Medications ?Medication ?Instructions ?Recorded ?Confirmed ?Last Taken ?Type albuterol sulfate 90 mcg/actuation 1 puff inhalation Q4H PRN 08/26/24 08/26/24 Unknown History aerosol inhaler shortness of breath or wheezing atorvastatin 10 mg tablet 10 mg PO QPM 08/26/24 08/26/24 Unknown History budesonide 160 mcg-glycopyr 9 2 inh inhalation BID 08/26/24 08/26/24 Unknown History mcg-formot 4.8 mcg/actuation HFA inhaler (Breztri Aerosphere) Allergies Allergy/AdvReac Type Severity Reaction Status Date / Time egg Allergy Severe Anaphylaxis Verified 08/26/24 04:04 peanut Allergy Severe Cough Verified 08/26/24 04:04 chicken derived Allergy Intermediate Cough Verified 08/26/24 04:04 codeine Allergy Intermediate Cough Verified 08/26/24 04:04 turkey Allergy Mild Cough Verified 08/26/24 04:04 chocolate Allergy Unknown Unknown Verified 08/26/24 04:04 Review of Systems 2 Review of Systems: As reviewed above in HPI [facility] Past Medical History Medical History (Updated 08/26/24 @ 05:48 by Johnathan Gallagher MD) Hypokalemia Hypertension COPD (chronic obstructive pulmonary disease) Abnormality of gait and mobility Abnormal findings on imaging test Mass of left lung Neuropathic pain Family History Family History (Updated 08/26/24 @ 04:18 by Tracy Torres RN) Father Diabetes mellitus Social History Social History Smoking packs per day: 1 Smoking cigarettes per day: 20.0 Years smoked: 20 Smoking pack-years: 20.00 Smoking status: Former smoker Tobacco type: cigarettes Second hand tobacco smoke exposure: Yes Exam 2 Narrative: GENERAL: Elderly and frail, not ill appearing and not in any acute distress HEAD: [Normocephalic, atraumatic.] EYES: [PERRLA and EOMI.] ENT: Nares clear, no rhinorrhea or epistaxis. Mucous membranes moist. NECK: Supple. CHEST: [Clear to auscultation. No respiratory distress.] HEART: [Regular rate and rhythm]. No murmur heard. [Normal peripheral pulses.] ABDOMEN: [Soft, nondistended], [nontender], [No rigidity or guarding] EXTREMITIES: Normal range of motion. [No edema.] SKIN: Warm, dry, no rash. NEURO: [No focal deficits]. Alert and oriented [x3.] Full mobility of both legs, flexion and extension at the hips knees and plantar and dorsiflexion at the ankle are full and symmetric 5/5 bilaterally. No anesthesia to the legs, saddle region, back. No sensory levels. PSYCH: [Normal mood and affect.] Course Vital Signs Vital signs: Vital Signs Temperature 37.3 C 08/25/24 15:09 Pulse Rate 99 08/25/24 15:09 Respiratory Rate 18 08/25/24 15:09 Blood Pressure 182/94 H 08/25/24 15:09 Pulse Oximetry 98 08/25/24 15:09 Oxygen Delivery Nasal Cannula 08/25/24 15:09 Oxygen Flow Rate 2 08/25/24 15:09 Temperature 36.7 C 08/26/24 02:34 Pulse Rate 64 08/26/24 02:34 Respiratory Rate 14 08/26/24 02:34 Blood Pressure 190/80 H 08/26/24 02:34 Pulse Oximetry 98 08/26/24 02:34 Oxygen Delivery Room Air 08/25/24 16:22 Oxygen Flow Rate 2 08/25/24 15:09 MDM - Extremity (Nontraumatic) MDM Narrative Medical decision making narrative: 69-year-old female with history of chronic respiratory failure on 2 L nasal cannula at home. She presents to the emergency department as she has been having generalized weakness and inability to walk recently. She states that she just feels like her legs are giving out on her and she has been dealing with neuropathy. She has difficulty ambulating and states that she previously was at rehab for this. Her is not present but states to nursing staff that he has been picking her up off the ground she has been falling frequently edges pending urine bed. They were not able to take care of her at home at this time. Patient herself is a very poor historian but acting at her baseline mentation and awake alert oriented. She is complaining of worsening pain she describes as pins and needles in her legs and when she tries to ambulate she gets weak and feels like her legs give out on her and she falls. No reported blood thinner use but has hit her head. No urinary symptoms. She is at her baseline oxygen at this time with no chest pain or difficulty in breathing. No recent illnesses, diarrhea, cough, fever. Was otherwise in her normal state of health. Patient is an unremarkable physical examination with no focal neurological or musculoskeletal findings, no signs of injury. She is very frail and weak appearing with unremarkable vitals without any tachycardia, fever, hypoxia significant blood pressure elevations. She is on her 2 L nasal cannula this time with clear breath sounds. Given her generalized weakness over last few days that is worsening could be potential electrolyte imbalance, dehydration, UTI, pneumonia, less likely intracranial pathology but given her falls could also be an intracranial bleed or less likely stroke. CT of the head, x-ray of the chest, urinalysis, CBC, CMP, straight catheterization ordered. She is given a fluid bolus. Patient's workup shows no leukocytosis or anemia. Platelets are elevated likely from dehydration and volume depletion. Electrolytes show some minor hypokalemia which was repleted. Normal BUN and creatinine, normal glucose and LFTs mildly elevated. Normal A1c. B12 and folate around baseline and normal. TSH slightly low. Urinalysis without infection. Chest x-ray shows opacities versus a mass. Head CT shows no acute intracranial findings. CT scan was obtained that shows no acute cardiopulmonary pathology but there is a mass adjacent to the left rib with destruction and suspicion for metastatic disease versus mesothelioma but she also has hyperdensities in the liver consistent with a mass and sclerotic changes in the vertebra consistent with metastatic disease. Patient was re-evaluated and doing well, informed of her CT scan in findings of concern for metastatic cancer. She was taken aback by the news but ultimately process did and was not sure if she would like to proceed with treatment. I spoke to the and told him to come to the hospital for goals of care and discussions. states that patient would not want anything besides comfort at this time but they would like to discuss with a cancer doctor at a later time. We do not have currently in Oncology physician on-call the hospital but I did discuss the case with the hospitalist mid-level provider currently being covered by [facility] who accepted the patient to the hospital for pain control and rehabilitation and patient will be provided oncological follow-up afterwards to discuss this. Patient and family comfortable with the plan and she was admitted safely. Lab Data 08/25/24 21:35 08/25/24 21:35 Labs: Lab Results 08/25/24 08/25/24 Range/Units 21:35 22:50 WBC 10.0 (4.5-10.0) K/mm3 RBC 4.01 L (4.2-5.4) M/mm3 Hgb 12.6 (12.0-15.0) g/dL Hct 37.3 (37.0-47.0) % MCV 93.0 (80-100) fl MCH 31.4 (26-34) pg MCHC 33.8 (32-36) g/dl RDW 14.0 (11.5-14.5) % Plt Count 409 H (150-375) k/mm3 MPV 9.0 (7.4-10.4) fl Immature Gran % (Auto) 0.5 (0-0.5) % Neut % (Auto) 75.4 H (45.5-73.1) % Lymph % (Auto) 12.5 L (18.3-44.2) % Warrick % (Auto) 9.8 H (2.6-8.5) % Eos % (Auto) 1.3 (0-4.4) % Baso % (Auto) 0.5 (0.2-1.2) % Lymph # (Auto) 1.25 (0.9-3.2) K/mm3 Warrick # (Auto) 1.0 H (0.1-0.6) K/mm3 Eos # (Auto) 0.1 (0-0.3) K/mm3 Baso # (Auto) 0.1 (0.0-0.1) K/mm3 Abs Immat Gran (auto) 0.05 H (0.00-0.031) K/mm3 Absolute Neuts (auto) 7.5 H (1.3-6.7) K/mm3 Absolute Nucleated RBC 0.000 (0.0-0.012) K/mm3 Nucleated RBC % 0.0 (0.0-0.2) % ESR 36 H (0-20) mm/hr Sodium 132 L (137-145) mmol/L Potassium 3.2 L (3.4-5.0) mmol/L Chloride 94 L (98-107) mmol/L Carbon Dioxide 31 H (22-30) mmol/L Anion Gap 7 (4-12) mmol/L BUN 15 (7-17) mg/dL Creatinine 0.46 L (0.7-1.0) mg/dL Estim Creat Clear Calc 62 ml/min Estimated GFR > 60 (59 - ) Glucose 100 (65-110) mg/dL Hemoglobin A1c 5.4 (<5.7) % Calcium 9.4 (8.4-10.2) mg/dL Total Bilirubin 0.7 (0.2-1.3) mg/dL AST 78 H (14-36) U/L ALT 48 H (6-35) U/L Alkaline Phosphatase 84 (38-126) U/L C-Reactive Protein 1.3 H (<1.0) mg/dL Total Protein 7.3 (6.3-8.2) g/dL Albumin 4.1 (3.5-5.1) g/dL Vitamin B12 991.0 H (239-931) pg/mL Folate 14.6 (2.76->20) ng/mL TSH (Reflex) 0.312 L (0.465-4.68) uIU/mL Free T4 Pending Urine Color Yellow (Yellow) Urine Appearance Turbid H (Clear) Urine pH 7.5 (5.0-9.0) Ur Specific [place] 1.015 (1.001-1.035) Urine Protein 1+ H (Negative) mg/dL Urine Glucose (UA) Negative (Negative) mg/dL Urine Ketones Trace H (Negative) mg/dL Ur Blood (Man) Negative (Negative) Urine Nitrate Negative (Negative) Urine Bilirubin Negative (Negative) Urine Urobilinogen 1.0 (<2.0) mg/dL Add Ur Microanalysis Reviewed Leukocyte Esterase Rfl Negative (Negative) BEAN/UL Urine RBC 6-10 H (0-2) /hpf Urine WBC 0-5 (0-3) /hpf Ur Squamous Epith Cells None seen (Few) /hpf Urine Bacteria None seen /hpf Urine Casts 0-2 Discharge Plan Discharge Clinical Impression: Mass of left lung, Neuropathic pain, Abnormal findings on imaging test, Abnormality of gait and mobility, Falls frequently Patient Disposition: Still a Patient Condition: Critical
--- NOTE | 2024-08-25 21:37 | ECG_ITS ---
Test Date: 2024-08-25 22:17:44 Measurements Intervals [place] Rate: 112 P: 85 GA: 143 QRS: -65 QRSD: 89 T: 87 QT: 335 QTc: 458 Interpretive Statements SINUS TACHYCARDIA WITH FREQUENT SUPRAVENTRICULAR PREMATURE COMPLEXES LEFT ANTERIOR FASCICULAR BLOCK [QRS AXIS <= -45, QR IN I, RS IN II] nonspecific ST T wave changes No previous ECG available for comparison Electronically Signed On 08-26-2024 12:47:44 CDT by Saul Torres M.D.
[2024-08-25 21:51] LABS: Hematocrit 37.3 % (37.0-47.0); Hemoglobin 12.6 g/dL (12.0-15.0); Immature Granulocyte Percent A 0.5 % (0-0.5); Lymphocytes Absolute Auto 1.25 K/mm3 (0.9-3.2); Mean Corpuscular HGB Conc 33.8 g/dl (32-36); Mean Corpuscular Hemoglobin 31.4 pg (26-34); Mean Corpuscular Volume 93.0 fl (80-100); Nucleated Red Blood Cells Absolute Auto 0.000 K/mm3 (0.0-0.012); Nucleated Red Blood Cells Perc 0.0 % (0.0-0.2); Platelet Count Result 409 k/mm3 (150-375); Red Blood Count 4.01 M/mm3 (4.2-5.4); White Blood Count 10.0 K/mm3 (4.5-10.0)
[2024-08-25 22:04] LABS: Hemoglobin A1C 5.4 % (<5.7)
[2024-08-25 22:05] LABS: Alanine Aminotransferase 48 U/L (6-35); Albumin Level 4.1 g/dL (3.5-5.1); Alkaline Phosphatase 84 U/L (38-126); Anion Gap 7 mmol/L (4-12); Aspartate Amino Transferase 78 U/L (14-36); Bilirubin,Total 0.7 mg/dL (0.2-1.3); Blood Urea Nitrogen 15 mg/dL (7-17); CRP 1.3 mg/dL (<1.0); Calcium 9.4 mg/dL (8.4-10.2); Carbon Dioxide 31 mmol/L (22-30); Chloride 94 mmol/L (98-107); Estimated CRCL calculation 62 ml/min; Estimated Glomerular Filt Rate > 60; Glucose 100 mg/dL (65-110); Potassium 3.2 mmol/L (3.4-5.0); Sodium 132 mmol/L (137-145); Total Protein 7.3 g/dL (6.3-8.2)
[2024-08-25 22:35] LABS: Thyroid Stimulating Hormone Reflex 0.312 uIU/mL (0.465-4.68)
[2024-08-25 23:10] LABS: Vitamin B12 991.0 pg/mL (239-931)
[2024-08-25 23:45] LABS: Add Urine Microscopic? YES; Appearance Urine Turbid (Clear); Glucose Urine UA Negative (Negative); Leukocyte Esterase Ur Negative LEU/UL (Negative); Need Manual Microscopic Reviewed; Nitrate Urine Negative (Negative); Non Pathogenic Casts 0-2; Specific Grav Ur 1.015 (1.001-1.035)
[2024-08-26] VITALS (17 sets, daily range): BP systolic 121–190; BP diastolic 70–96; PULSE 64–110; RESP 14–16; TEMP 36.4–36.7; O2SAT 96–100; BMI 17.9
[2024-08-26] MEDS: POTASSIUM CHLORIDE 20 MEQ PACKET (FOR LIQUID) 40 MEQ PO (01:14)
[2024-08-26] MEDS: HYDROmorphone HCL INJ (*CRX) 2 MG/ML VIAL 0.5 MG IV PUSH ×2 (01:14→11:10)
[2024-08-26] MEDS: ONDANSETRON INJ 4 MG/2 ML VIAL IV PUSH (01:14)
--- NOTE | 2024-08-26 02:50 | P.HP_ITS ---
H&P: HPI History of Present Illness Date/Time: 08/26/24 02:50 Chief Complaint: Leg pain and weakness Narrative: This is a 69-year-old female patient with past medical history of COPD, hyperlipidemia, hypertension, chronic kidney disease, chronic supplemental oxygen for home use and neuropathy who comes to the emergency room with complaints of having bilateral leg pain and numbness with a pins and needles feeling for the past couple of days. Patient is a very poor historian of her own medical care, is alert and oriented times 2-3 and her at the early hours of the morning at 1:30 a.m. is not at the bedside to provide history therefore and I have relied on information related to the emergency room provider as well as a list of various medical documents in the patient's back that she has at the bedside to give me most of my history. As told to the ER provider the patient's spouse says that she has been increasingly weak and unable to walk at home. He notes that her legs have been giving out and he has to physically move her many times to get her around. She previously had been at rehab for the symptoms and was discharged and now it is worse. She has frequent falls at home secondary to being weak. She has not had any acute traumatic injury to contribute to her weakness but she is just generally becoming more weak. There has been no new incontinence or complaints of saddle anesthesia, but rather neuropathic symptoms. She is a former smoker. No known drug or alcohol use. Patient also complains pain over her left ribs. In the emergency room workup was performed showing normal vital signs on her baseline 2 L supplemental oxygen. CBC and metabolic panel are unremarkable except for marginally low potassium of 3.2 that will be replaced orally. B12 level is 991, CRP is 1.3, sed rate is 36, calcium is 9.4, A1c is 5.4, TSH is low at 0.312 with T4 pending, urinalysis is normal. Chest x-ray shows a left upper lobe mass. CT chest showing no acute cardiopulmonary infection but does show a mass adjacent to the left 8th rib with signs of bone destruction. Suspect metastasis versus mesothelioma. There is also a density in the liver that is suggestive of a potential metastatic mass, and the 1st thoracic vertebra has sclerotic changes suggestive of metastatic disease. Correlational findings of the bone destruction of the left 8th rib with her current left-sided rib pain highly suspicious for pain due to malignancy. These findings of potential metastatic disease are new for the patient and neither her new of any potential cancer as discussed with the ER hali rosas. They are uncertain at this point what they would like to do as far as potential treatment if any. The concern is patient's spouse can no longer care for her at home as she has become too weak and has multiple falls. They would like to discuss placing her and rehab vs SNF and get her pain under control at this time. Patient was given an IV fluid bolus in the emergency room. She is being admitted in the current setting for neuropathic pain, alteration of gait and mobility requiring discharge planning and possible placement as well as discussion with pulmonology for potential biopsy of lesion in lung. As noted per patient has various medical words that were at the bedside is Dr. Dejesus (Pulmonology) and Dr. Isaac (PCP). Review of Systems Review of Systems: The information that I did receive came directly from the emergency room provider as well as from the list of medical records that was in the bag at the bedside of the patient. She is a very poor historian of her own history and could not give me the name of her primary care provider. ROS unobtainable: Yes other (See HPI) [facility] Past Medical History Medical History (Updated 08/26/24 @ 03:09 by DIEGO Augustin) Hypokalemia Hypertension COPD (chronic obstructive pulmonary disease) Abnormality of gait and mobility Abnormal findings on imaging test Mass of left lung Neuropathic pain Meds Home Medications and Allergies Allergies Allergy/AdvReac Type Severity Reaction Status Date / Time No Known Allergies Allergy Verified 08/25/24 16:37 Vital Signs Vital Signs - 24 hr 08/25/24 15:09 08/25/24 16:22 08/25/24 18:18 Temperature 99.2 F 98 F Pulse Rate 99 97 78 Respiratory Rate 18 16 18 Blood Pressure 182/94 H 157/91 H 132/78 Pulse Oximetry 98 96 98 Oxygen Delivery Nasal Cannula Room Air Oxygen Flow Rate 2 08/25/24 20:34 08/25/24 20:45 08/25/24 21:20 Temperature Pulse Rate Respiratory Rate Blood Pressure Pulse Oximetry 93 92 99 Oxygen Delivery Oxygen Flow Rate 08/25/24 21:30 08/25/24 21:36 08/25/24 22:48 Temperature Pulse Rate Respiratory Rate Blood Pressure 166/108 H Pulse Oximetry 97 93 95 Oxygen Delivery Oxygen Flow Rate 08/25/24 23:06 08/25/24 23:08 08/25/24 23:09 Temperature Pulse Rate 113 H 112 H 112 H Respiratory Rate Blood Pressure 216/124 H 198/117 H Pulse Oximetry 100 99 Oxygen Delivery Oxygen Flow Rate 08/25/24 23:15 08/25/24 23:17 08/26/24 00:10 Temperature Pulse Rate 120 H 124 H 105 H Respiratory Rate Blood Pressure 214/105 H Pulse Oximetry 98 97 99 Oxygen Delivery Oxygen Flow Rate 08/26/24 00:15 08/26/24 00:16 08/26/24 00:17 Temperature Pulse Rate 92 99 100 Respiratory Rate Blood Pressure 183/96 H Pulse Oximetry 98 99 100 Oxygen Delivery Oxygen Flow Rate 08/26/24 00:30 08/26/24 00:31 08/26/24 01:08 Temperature Pulse Rate 87 102 H 110 H Respiratory Rate Blood Pressure 177/88 H Pulse Oximetry 99 99 Oxygen Delivery Oxygen Flow Rate 08/26/24 01:15 08/26/24 01:16 08/26/24 02:24 Temperature Pulse Rate 109 H 102 H 100 Respiratory Rate Blood Pressure Pulse Oximetry 98 100 Oxygen Delivery Oxygen Flow Rate 08/26/24 02:34 Temperature 98.1 F Pulse Rate 64 Respiratory Rate 14 Blood Pressure 190/80 H Pulse Oximetry 98 Oxygen Delivery Oxygen Flow Rate Exam Const: General: comfortable and no acute distress Other: Elderly, female patient lying supine at this time in no acute distress. She appears tired and drifts off with attempting to speak. HENMT: Face/Nose/Sinus: Normal nares present Mouth: Yes moist mucous membranes Eyes: General: appearance normal, both eyes and all related structures Sclera: sclerae normal Pupils: Equal, round and reactive pupils present EOM: EOMs intact bilaterally Neck: Neck: supple and no JVD Lymphatic: lymphadenopathy not noted Chest: Other: Tenderness to palpation left anterolateral ribs Resp: Effort & Inspection: normal respiratory effort Auscultation: clear to auscultation bilaterally Cardio: Rate: regular rate Rhythm: regular rhythm Heart sounds: no gallops, no murmurs and no rubs GI: Inspection: non-distended GI Palp: Yes Soft to palpation and No Tenderness to palpation present (GI) Auscultation: normal bowel sounds Skin: General skin exam: normal color and rashes and/or lesions noted Lesions: lesion noted (Bruising to the bilateral lower extremities. Various degrees of healing) Rashes: no rashes noted Wounds: no wounds Neuro: Speech: normal speech Motor exam (neuro): Abnormal motor strength present (Generalized, nonfocal weakness) Sensory Exam: normal sensation Other: Negative Babinski bilaterally and 3+ bilateral patellar knee jerk reflexes. Alert oriented x2 but requires much prompting and redirection. Extrem: Other: No edema, full active range of motion Psych: Affect: normal affect H&P: Results Labs Labs: Short CBC 08/25/24 Range/Units 21:35 WBC 10.0 (4.5-10.0) K/mm3 Hgb 12.6 (12.0-15.0) g/dL Hct 37.3 (37.0-47.0) % Plt Count 409 H (150-375) k/mm3 BMP 08/25/24 21:35 Sodium 132 L Potassium 3.2 L Chloride 94 L Carbon Dioxide 31 H BUN 15 Creatinine 0.46 L Glucose 100 Calcium 9.4 Liver Function 08/25/24 Range/Units 21:35 Total Bilirubin 0.7 (0.2-1.3) mg/dL AST 78 H (14-36) U/L ALT 48 H (6-35) U/L Alkaline Phosphatase 84 (38-126) U/L Albumin 4.1 (3.5-5.1) g/dL Urine 08/25/24 Range/Units 22:50 Urine Color Yellow (Yellow) Urine Appearance Turbid H (Clear) Urine pH 7.5 (5.0-9.0) Ur Specific [place] 1.015 (1.001-1.035) Urine Protein 1+ H (Negative) mg/dL Urine Glucose (UA) Negative (Negative) mg/dL Assessment and Plan Assessment and plan (1) Neuropathic pain: Code(s): M79.2 - Neuralgia and neuritis, unspecified Status: Acute Assessment and Plan: * Etiology uncertain, however patient describes pins and needles feeling. * Gabapentin 100 mg t.i.d. initiated with recommendation to up titrate as needed * Fall precautions * P.r.n. [place] as needed for breakthrough pain (2) Mass of left lung: Code(s): R91.8 - Other nonspecific abnormal finding of lung field Status: Acute Assessment and Plan: * Newly found. * Consult pulmonology (3) Abnormal findings on imaging test: Code(s): R93.89 - Abnormal findings on diagnostic imaging of other specified body struct ures Status: Acute Assessment and Plan: * CT scan with concerning findings for not only the left upper lobe lung mass that also concerns for metastasis with destructive lesions at the left 8th rib as well as sclerotic lesions of the 1st thoracic vertebrae. * Will consult pulmonology to discuss with patient possible biopsy of the lung mass as this would likely be the primary source of any malignancy. (4) Abnormality of gait and mobility: Code(s): R26.9 - Unspecified abnormalities of gait and mobility Status: Acute Assessment and Plan: * Patient with multiple falls, deemed high risk for potential falls due to increased pain * Spouse no longer able to care for her at home. * Care coordination consult for discharge planning/placement * PT OT consult. * Fall precautions (5) COPD (chronic obstructive pulmonary disease): Code(s): J44.9 - Chronic obstructive pulmonary disease, unspecified Status: Chronic Assessment and Plan: * Continue Breztri * Continue Albuterol * Monitor and trend VS * Supportive care (6) Hypertension: Code(s): I10 - Essential (primary) hypertension Status: Chronic Assessment and Plan: * Uncertain of what medications patient takes at home * Hydralazine 10 mg p.o. t.i.d. p.r.n. systolic blood pressure greater than 180 and diastolic blood pressure greater than 90. (7) Hypokalemia: Code(s): E87.6 - Hypokalemia Status: Acute Assessment and Plan: * Replaced with 40 mEq p.o. in ER. * Trend daily labs Quality VTE Prophylaxis VTE prophylaxis: mechanical ordered Hospitalist MIPS Advance Care Plan I have confirmed that the patient's Advanced Care Plan is present, code status is documented, or surrogate decision maker is listed in patient medical record.: Yes Medication Reconciliation I have utilized all available resources to obtain, update and review the patients current medications (includes all prescriptions, OTC, herbals, cannabis, and nutritional supplements).: Yes
[2024-08-26 07:01] LABS: Free T4 Free Thyroxine Reflex 1.57 ng/dL (0.78-2.19)
[2024-08-26] MEDS: FLUTICASONE/UMECLIDIN/VILANTER 100-62.5-25 MCG ELLIPTA 1 PUFF INHALATION (08:04)
[2024-08-26 08:07] LABS: Alanine Aminotransferase 40 U/L (6-35); Albumin Level 3.5 g/dL (3.5-5.1); Alkaline Phosphatase 74 U/L (38-126); Anion Gap 5 mmol/L (4-12); Aspartate Amino Transferase 67 U/L (14-36); Bilirubin,Total 0.6 mg/dL (0.2-1.3); Blood Urea Nitrogen 16 mg/dL (7-17); Calcium 9.0 mg/dL (8.4-10.2); Carbon Dioxide 33 mmol/L (22-30); Chloride 94 mmol/L (98-107); Estimated CRCL calculation 59 ml/min; Estimated Glomerular Filt Rate > 60; Glucose 92 mg/dL (65-110); Potassium 3.7 mmol/L (3.4-5.0); Sodium 132 mmol/L (137-145); Total Protein 6.3 g/dL (6.3-8.2)
--- NOTE | 2024-08-26 10:35 | PC.NURSE ---
RN discussed morning medications with patient. Patient has scheduled gabapentin. Patient states she does not take gabapentin and does not know what this medication is for. RN educated patient on medication. Patient refused to take gabapentin and states I am allergic to a lot of things and I do not take medications I do not know.
[2024-08-26 11:21] LABS: Total Triiodothyronine (T3) 0.89 NG/ML (0.82-1.58)
--- NOTE | 2024-08-26 12:07 | P.CONPL_ITS ---
Assessment and Plan Assessment and plan (1) Mass of left lung: Code(s): R91.8 - Other nonspecific abnormal finding of lung field Status: Acute Assessment and Plan: She has a mass in the left lower lobe superior segment with adjacent 8th rib destruction suggestive of malignancy which measures 7.5 x 3.1 x 5.3 cm She also has a liver mass. I recommend a biopsy of the liver mass to diagnose and stage it with one procedure. She is on O2, will not be a candidate for a biopsy of the lung. (2) COPD (chronic obstructive pulmonary disease): Code(s): J44.9 - Chronic obstructive pulmonary disease, unspecified Status: Chronic Assessment and Plan: No PFTS available. She has > 50 pack years of tobacco, has had wt loss, increased shortness of breath, denies cough or sputum. She uses Breztri at home, 3 long acting medications. [facility] has Trelegy on the formulary, and this can substitute for the Breztri. Use albuterol prn shortness of breath. (3) Chronic respiratory failure: Code(s): J96.10 - Chronic respiratory failure, unspecified whether with hypoxia or hypercapnia Status: Acute Assessment and Plan: She uses O2 at home, here is on 2 L with saturation 96%. Plan plan: O2, COPD treatment with Trelegy as a substitute for Breztri, and biopsy of the liver mass to diagnose and stage whatever process is happening. She has back pain from met lesion to left 8th rib. History of Present Illness History of Present Illness Consult date: 08/26/24 Chief complaint: Deconditioning, frequent falls, malignancy Narrative: pt was seen August 26, 2024 at 21:35, Room 343 NEW : Kiley Pierre is a 69-year-old woman with COPD, on home O2, admitted with lower extremity leg pain, numbness and tingling. She had a chest CT August 25 showing Left 8th rib destruction concerning for malignancy, a liver mass and sclerotic changes in the first thoracic vertebra that suggests metastatic disease. She is a former smoker, quit Mar 2023. She does not have a chronic cough or sputum production. She tells me that she has lost weight, she has no problems swallowing, has pain in her left side of her back where a large bony growth the size of a round valley is near her left scapula. She also complains of spine pain. She needs to have a biopsy to make a diagnosis of these possible metastatic lesions. 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 Her mother worked at [employer] in a building that had asbestosis. The patient uses Breztri at home as her controller inhaler, and prn albuterol. PMH: COPD, hyperlipidemia, hypertension, chronic kidney disease, chronic supplemental oxygen for home use and neuropathy who comes to the emergency room with complaints of having bilateral leg pain and numbness with a pins and needles feeling for the past couple of days. DATA * 08/25/[address] FINDINGS: VISUALIZED THORACIC INLET: Normal. MEDIASTINUM: Aorta/coronary arteries: Mild atheromatous disease. Heart/other: The heart is not enlarged. Lymph nodes: No mediastinal or hilar adenopathy. Precarinal lymph node measuring 1 cm. LUNGS: Pleural based mass is seen in the left lower lobe superior segment with adjacent 8th rib destruction suggestive of malignancy which measures 7.5 x 3.1 x 5.3 cm. No infiltrates or effusions. No pneumothorax. VISUALIZED UPPER ABDOMEN: Hyperdensity in the right lobe of the liver measuring 1.4 cm which may be a mass. Further evaluation advised. Bilateral hydronephrotic changes. Sella Otherwise, the visualized upper abdomen is normal. MUSCULOSKELETAL: Soft tissues: The superficial soft tissues are normal. Bones: Age appropriate degenerative changes of the spine. Sclerotic changes in the 1st thoracic vertebra. Further evaluation advised. IMPRESSION: 1. No acute cardiopulmonary pathology. 2. Mass adjacent to the left eighth rib destruction which may be metastatic versus mesothelioma. Further evaluation advised. 3. Hypodensity in the liver which is highly suggestive of a mass. Further evaluation advised. 4. Bilateral hydronephrotic changes. 5. Sclerotic changes in the first thoracic vertebra suggestive of metastatic lesion. Further evaluation advised. Review of Systems 2 Review of Systems: All systems reviewed & are unremarkable except as noted in HPI and below PMFSH Past Medical History Medical History (Updated 08/26/24 @ 13:45 by Jonathan Nguyen MD) Chronic respiratory failure Hypokalemia Hypertension COPD (chronic obstructive pulmonary disease) Abnormality of gait and mobility Abnormal findings on imaging test Mass of left lung Neuropathic pain Family History Family History (Updated 08/26/24 @ 04:18 by Tracy Torres RN) Father Diabetes mellitus Social History Social History Smoking packs per day: 1 Smoking cigarettes per day: 20.0 Years smoked: 20 Smoking pack-years: 20.00 Smoking status: Former smoker Tobacco type: cigarettes Second hand tobacco smoke exposure: Yes Spiritual care concerns: No Meds Home Medications and Allergies Home Medications ?Medication ?Instructions ?Recorded ?Confirmed ?Type albuterol sulfate 90 mcg/actuation 1 puff inhalation Q4H PRN 08/26/24 08/26/24 History aerosol inhaler shortness of breath or wheezing atorvastatin 10 mg tablet 10 mg PO QPM 08/26/24 08/26/24 History budesonide 160 mcg-glycopyr 9 2 inh inhalation BID 08/26/24 08/26/24 History mcg-formot 4.8 mcg/actuation HFA inhaler (Breztri Aerosphere) Allergies Allergy/AdvReac Type Severity Reaction Status Date / Time egg Allergy Severe Anaphylaxis Verified 08/26/24 04:04 peanut Allergy Severe Cough Verified 08/26/24 04:04 chicken derived Allergy Intermediate Cough Verified 08/26/24 04:04 codeine Allergy Intermediate Cough Verified 08/26/24 04:04 turkey Allergy Mild Cough Verified 08/26/24 04:04 chocolate Allergy Unknown Unknown Verified 08/26/24 04:04 Vital Signs Vital Signs - 24 hr 08/25/24 15:09 08/25/24 16:22 08/25/24 18:18 Temperature 37.3 C 36.6 C Pulse Rate 99 97 78 Respiratory Rate 18 16 18 Blood Pressure 182/94 H 157/91 H 132/78 Pulse Oximetry 98 96 98 Oxygen Delivery Nasal Cannula Room Air Oxygen Flow Rate 2 08/25/24 20:34 08/25/24 20:45 08/25/24 21:20 Temperature Pulse Rate Respiratory Rate Blood Pressure Pulse Oximetry 93 92 99 Oxygen Delivery Oxygen Flow Rate 08/25/24 21:30 08/25/24 21:36 08/25/24 22:48 Temperature Pulse Rate Respiratory Rate Blood Pressure 166/108 H Pulse Oximetry 97 93 95 Oxygen Delivery Oxygen Flow Rate 08/25/24 23:06 08/25/24 23:08 08/25/24 23:09 Temperature Pulse Rate 113 H 112 H 112 H Respiratory Rate Blood Pressure 216/124 H 198/117 H Pulse Oximetry 100 99 Oxygen Delivery Oxygen Flow Rate 08/25/24 23:15 08/25/24 23:17 08/26/24 00:10 Temperature Pulse Rate 120 H 124 H 105 H Respiratory Rate Blood Pressure 214/105 H Pulse Oximetry 98 97 99 Oxygen Delivery Oxygen Flow Rate 08/26/24 00:15 08/26/24 00:16 08/26/24 00:17 Temperature Pulse Rate 92 99 100 Respiratory Rate Blood Pressure 183/96 H Pulse Oximetry 98 99 100 Oxygen Delivery Oxygen Flow Rate 08/26/24 00:30 08/26/24 00:31 08/26/24 01:08 Temperature Pulse Rate 87 102 H 110 H Respiratory Rate Blood Pressure 177/88 H Pulse Oximetry 99 99 Oxygen Delivery Oxygen Flow Rate 08/26/24 01:15 08/26/24 01:16 08/26/24 02:24 Temperature Pulse Rate 109 H 102 H 100 Respiratory Rate Blood Pressure Pulse Oximetry 98 100 Oxygen Delivery Oxygen Flow Rate 08/26/24 02:34 08/26/24 06:00 08/26/24 08:06 Temperature 36.7 C 36.4 C Pulse Rate 64 96 Respiratory Rate 14 14 Blood Pressure 190/80 H 169/70 H Pulse Oximetry 98 100 96 Oxygen Delivery Nasal Cannula Oxygen Flow Rate 2 08/26/24 09:25 Temperature Pulse Rate Respiratory Rate Blood Pressure Pulse Oximetry 96 Oxygen Delivery Nasal Cannula Oxygen Flow Rate 2 Exam 2 Narrative: GEN: Alert, oriented, not in distress. She is not completely oriented, a little confused. She is thin. HEENT: pupils are equal, EOMI, symmetrical face; oral membranes moist, Mallampati II airway NECK: Trachea is midline CHEST: Equal air entry, symmetric excursion, clear decreased breath sounds On her left posterior chest, bony growth near the left scapula size of a round valley, tender, she has pain lying on her back fur to this growth. CV: Regular S1S2 no m/g/r ABD : (+) bowel sounds Extremities : (+) clubbing on fingernails; no cyanosis, no edema, no calf tenderness PSYCH: She is pleasant, cooperative, a little forgetful, normal mood. Gait is not tested Results Laboratory Findings 08/25/24 21:35 08/26/24 07:50 Abnormal lab findings: Abnormal Labs 08/25/24 08/25/24 08/26/24 21:35 22:50 07:50 RBC 4.01 L Plt Count 409 H Neut % (Auto) 75.4 H Lymph % (Auto) 12.5 L [place] % (Auto) 9.8 H [place] # (Auto) 1.0 H Abs Immat Gran (auto) 0.05 H Absolute Neuts (auto) 7.5 H ESR 36 H Sodium 132 L 132 L Potassium 3.2 L Chloride 94 L 94 L Carbon Dioxide 31 H 33 H Creatinine 0.46 L 0.53 L AST 78 H 67 H ALT 48 H 40 H C-Reactive Protein 1.3 H Vitamin B12 991.0 H TSH (Reflex) 0.312 L Urine Appearance Turbid H Urine Protein 1+ H Urine Ketones Trace H Urine RBC 6-10 H
--- NOTE | 2024-08-26 13:41 | PM.IMPN ---
Progress Note: A&P Assessment and Plan (1) Paraplegia: Code(s): G82.20 - Paraplegia, unspecified Status: Acute Assessment and Plan: Patient presents with progressive loss of LE function with multiple falls. Chest CT showing sclerotic changes in T1 suggestive of metastatic lesion. Also noted to have bilateral hydronephrosis. Given the LE paralysis and concern for metastatic CA, consider compressive spinal lesion causing her paralysis and possible urine retention. MR C/T/L spine. PT/OT when able. (2) Neuropathic pain: Code(s): M79.2 - Neuralgia and neuritis, unspecified Status: Acute Assessment and Plan: Patient describes pins and needles feeling. Etiology uncertain but concern for spinal lesion. Gabapentin 100 mg t.i.d. initiated Fall precautions P.r.n. narcotics as needed for breakthrough pain (3) Mass of left lung: Code(s): R91.8 - Other nonspecific abnormal finding of lung field Status: Acute Assessment and Plan: Patient presents with weakness and found to have an abnormal CXR. CT Chest showing a pleural based mass LLL with associated adjacent 8th rib destruction concerning for malignancy Pulmonology consulted Will need tissue biopsy (4) Hydronephrosis: Code(s): N13.30 - Unspecified hydronephrosis Status: Acute Assessment and Plan: CT Chest findings as above. Also noted to have hypodensity in the liver which is suggestive of a mass as well as bilateral hydronephrosis. Could have a pelvic mass causing obstructive uropathy with lets to liver and lung or spinal met causing compression and urine retention. Check CT Abd/Pelvis today. Follow up results. Place Palomo. (5) COPD (chronic obstructive pulmonary disease): Code(s): J44.9 - Chronic obstructive pulmonary disease, unspecified Status: Chronic Assessment and Plan: Stable. No wheezing. Remains on her 2L. Continue Trelegy. Albuterol prn (6) Hypertension: Code(s): I10 - Essential (primary) hypertension Status: Chronic Assessment and Plan: Uncertain of what medications patient takes at home (nothing listed on her home med list) Hydralazine 10 mg p.o. t.i.d. available p.r.n. Add low dose Norvasc Monitor for now (7) Hypokalemia: Code(s): E87.6 - Hypokalemia Status: Acute Assessment and Plan: Potassium 3.2 on admisison that was replaced. Follow and replace as needed (8) Chronic respiratory failure: Code(s): J96.10 - Chronic respiratory failure, unspecified whether with hypoxia or hypercapnia Status: Acute Assessment and Plan: Stable. As above. Plan DVT Prophylaxis - SCDs Code status - Full Subjective Date/time seen: 08/26/24 13:41 Interval history: 69yo female with COPD, HTN and chronic resp failure on 2L O2 here for leg weakness. Patient slept well. Denies chest pain or shortness of breath. No cough. No hemoptysis. She does have complaints of back pain. She is alert but confused so history is suspect. Spoke later with significant other. States patient has had increasing lower extremity weakness bilaterally for the past 3-4 days the point where she is unable to walk. Review of Systems Review of Systems: ROS unobtainable: Yes unobtainable due to mental status Exam Narrative: AF 97.6 169/70 96 14 96% 2L Gen - thin female in NARD Chest - distant BS, nml RR CV - RRR S1/S2 Abd - Soft, NT/ND, Positive BS Ext - No pedal edema. loss of muscle mass Neuro - Alert and oriented x2. Hip flexors, dorsiflexion and plantar flexion is 2/6 bilaterally. Dogman/Woman normal. Psych - Nml mood and affect Skin - Warm and dry Objective Data Vital Signs Vital Signs: Vital Signs - 24 hr 08/25/24 15:09 08/25/24 16:22 08/25/24 18:18 Temperature 99.2 F 98 F Pulse Rate 99 97 78 Respiratory Rate 18 16 18 Blood Pressure 182/94 H 157/91 H 132/78 Pulse Oximetry 98 96 98 Oxygen Delivery Nasal Cannula Room Air Oxygen Flow Rate 2 08/25/24 20:34 08/25/24 20:45 08/25/24 21:20 Temperature Pulse Rate Respiratory Rate Blood Pressure Pulse Oximetry 93 92 99 Oxygen Delivery Oxygen Flow Rate 08/25/24 21:30 08/25/24 21:36 08/25/24 22:48 Temperature Pulse Rate Respiratory Rate Blood Pressure 166/108 H Pulse Oximetry 97 93 95 Oxygen Delivery Oxygen Flow Rate 08/25/24 23:06 08/25/24 23:08 08/25/24 23:09 Temperature Pulse Rate 113 H 112 H 112 H Respiratory Rate Blood Pressure 216/124 H 198/117 H Pulse Oximetry 100 99 Oxygen Delivery Oxygen Flow Rate 08/25/24 23:15 08/25/24 23:17 08/26/24 00:10 Temperature Pulse Rate 120 H 124 H 105 H Respiratory Rate Blood Pressure 214/105 H Pulse Oximetry 98 97 99 Oxygen Delivery Oxygen Flow Rate 08/26/24 00:15 08/26/24 00:16 08/26/24 00:17 Temperature Pulse Rate 92 99 100 Respiratory Rate Blood Pressure 183/96 H Pulse Oximetry 98 99 100 Oxygen Delivery Oxygen Flow Rate 08/26/24 00:30 08/26/24 00:31 08/26/24 01:08 Temperature Pulse Rate 87 102 H 110 H Respiratory Rate Blood Pressure 177/88 H Pulse Oximetry 99 99 Oxygen Delivery Oxygen Flow Rate 08/26/24 01:15 08/26/24 01:16 08/26/24 02:24 Temperature Pulse Rate 109 H 102 H 100 Respiratory Rate Blood Pressure Pulse Oximetry 98 100 Oxygen Delivery Oxygen Flow Rate 08/26/24 02:34 08/26/24 06:00 08/26/24 08:06 Temperature 98.1 F 97.6 F Pulse Rate 64 96 Respiratory Rate 14 14 Blood Pressure 190/80 H 169/70 H Pulse Oximetry 98 100 96 Oxygen Delivery Nasal Cannula Oxygen Flow Rate 2 08/26/24 09:25 Temperature Pulse Rate Respiratory Rate Blood Pressure Pulse Oximetry 96 Oxygen Delivery Nasal Cannula Oxygen Flow Rate 2 Intake/Output Intake/Output: Intake & Output 08/23/24 08/24/24 08/25/24 08/26/24 23:59 23:59 23:59 23:59 Intake Total 1000 240 Balance 1000 240 Meds/Results Medications: Active Medications Generic Name Dose Route Start Last Admin Trade Name Freq PRN Reason Stop Dose Admin Acetaminophen 650 mg 08/26/24 00:45 Acetaminophen 325 Mg Tablet PO Q4H PRN Mild Pain (1-3) or Fever Hydrocodone Bitart/Acetaminophen 1 tab 08/26/24 00:45 Hydrocodone/Acetaminophen (*Crx) 5-325 Mg Tablet PO Q4H PRN Pain Rated 4-6 Albuterol 2.5 mg 08/26/24 03:09 Albuterol Sulfate Neb 2.5 Mg/3 Ml Inh INHALATION Q4HRT PRN Shortness Of Breath Fluticasone/Umeclidinium/Vilanterol 1 puff 08/26/24 08:00 08/26/24 08:04 Fluticasone/Umeclidin/Vilanter 100-62.5-25 Mcg Ellipta INHALATION 1 puff DAILYRT SABI Administration Gabapentin 100 mg 08/26/24 09:00 08/26/24 12:43 Gabapentin 100 Mg Capsule PO Not Given TID SABI Hydralazine HCl 10 mg 08/26/24 06:16 Hydralazine Hcl 20 Mg/Ml Vial IV PUSH Q8H PRN Blood Pressure - High Hydromorphone HCl 0.5 mg 08/26/24 00:45 08/26/24 11:10 Hydromorphone Hcl Inj (*Crx) 2 Mg/Ml Vial IV PUSH 0.5 mg Q4H PRN Administration Pain Rated 7-10 Ondansetron HCl 4 mg 08/26/24 00:45 08/26/24 01:14 Ondansetron Inj 4 Mg/2 Ml Vial IV PUSH 4 mg Q4H PRN Administration Nausea Radiology Results: ITS Impressions Chest X-Ray 08/25/24 21:13 IMPRESSION: Opacity in the left upper lobe which may be focal pneumonia versus a mass. Further evaluation advised Head CT 08/25/24 21:26 IMPRESSION: No acute intracranial findings. Chest CT 08/25/24 22:32 IMPRESSION: 1. No acute cardiopulmonary pathology. 2. Mass adjacent to the left eighth rib destruction which may be metastatic versus mesothelioma. Further evaluation advised. 3. Hypodensity in the liver which is highly suggestive of a mass. Further evaluation advised. 4. Bilateral hydronephrotic changes. 5. Sclerotic changes in the first thoracic vertebra suggestive of metastatic lesion. Further evaluation advised. Labs Labs: Laboratory Results - last 24 hr 08/25/24 08/25/24 08/26/24 21:35 22:50 07:50 WBC 10.0 RBC 4.01 L Hgb 12.6 Hct 37.3 MCV 93.0 MCH 31.4 MCHC 33.8 RDW 14.0 Plt Count 409 H MPV 9.0 Immature Gran % (Auto) 0.5 Neut % (Auto) 75.4 H Lymph % (Auto) 12.5 L [place] % (Auto) 9.8 H Eos % (Auto) 1.3 Baso % (Auto) 0.5 Lymph # (Auto) 1.25 [place] # (Auto) 1.0 H Eos # (Auto) 0.1 Baso # (Auto) 0.1 Abs Immat Gran (auto) 0.05 H Absolute Neuts (auto) 7.5 H Absolute Nucleated RBC 0.000 Nucleated RBC % 0.0 ESR 36 H Sodium 132 L 132 L Potassium 3.2 L 3.7 Chloride 94 L 94 L Carbon Dioxide 31 H 33 H Anion Gap 7 5 BUN 15 16 Creatinine 0.46 L 0.53 L Estim Creat Clear Calc 62 59 Estimated GFR > 60 > 60 Glucose 100 92 Hemoglobin A1c 5.4 Calcium 9.4 9.0 Total Bilirubin 0.7 0.6 AST 78 H 67 H ALT 48 H 40 H Alkaline Phosphatase 84 74 C-Reactive Protein 1.3 H Total Protein 7.3 6.3 Albumin 4.1 3.5 Vitamin B12 991.0 H Folate 14.6 TSH (Reflex) 0.312 L Free T4 1.57 Total T3 0.89 Urine Color Yellow Urine Appearance Turbid H Urine pH 7.5 Ur Specific [place] 1.015 Urine Protein 1+ H Urine Glucose (UA) Negative Urine Ketones Trace H Ur Blood (Man) Negative Urine Nitrate Negative Urine Bilirubin Negative Urine Urobilinogen 1.0 Add Ur Microanalysis Reviewed Leukocyte Esterase Rfl Negative Urine RBC 6-10 H Urine WBC 0-5 Ur Squamous Epith Cells None seen Urine Bacteria None seen Urine Casts 0-2
[2024-08-26] MEDS: HYDROcodone/acetaminophen (*CRX) 5-325 MG TABLET 1 TAB PO ×2 (14:57→19:24)
--- NOTE | 2024-08-26 16:15 | PC.NURSE ---
Patient off of unit to CT
[2024-08-26] MEDS: GABAPENTIN 100 MG CAPSULE PO (17:29)
[2024-08-27] MEDS: HYDROcodone/acetaminophen (*CRX) 5-325 MG TABLET 1 TAB PO ×3 (05:18→23:22)
[2024-08-27 05:24] VITALS: BP 120/60; PULSE 90; RESP 16; TEMP 37; O2SAT 96
[2024-08-27 05:48] LABS: Hematocrit 36.9 % (37.0-47.0); Hemoglobin 11.8 g/dL (12.0-15.0); Immature Granulocyte Percent A 0.3 % (0-0.5); Lymphocytes Absolute Auto 1.33 K/mm3 (0.9-3.2); Mean Corpuscular HGB Conc 32.0 g/dl (32-36); Mean Corpuscular Hemoglobin 31.1 pg (26-34); Mean Corpuscular Volume 97.4 fl (80-100); Nucleated Red Blood Cells Absolute Auto 0.000 K/mm3 (0.0-0.012); Nucleated Red Blood Cells Perc 0.0 % (0.0-0.2); Platelet Count Result 360 k/mm3 (150-375); Red Blood Count 3.79 M/mm3 (4.2-5.4); White Blood Count 9.1 K/mm3 (4.5-10.0)
[2024-08-27 05:58] LABS: Alanine Aminotransferase 38 U/L (6-35); Albumin Level 3.6 g/dL (3.5-5.1); Alkaline Phosphatase 71 U/L (38-126); Anion Gap 3 mmol/L (4-12); Aspartate Amino Transferase 56 U/L (14-36); Bilirubin,Total 0.5 mg/dL (0.2-1.3); Blood Urea Nitrogen 17 mg/dL (7-17); Calcium 9.1 mg/dL (8.4-10.2); Carbon Dioxide 35 mmol/L (22-30); Chloride 92 mmol/L (98-107); Estimated CRCL calculation 55 ml/min; Estimated Glomerular Filt Rate > 60; Glucose 125 mg/dL (65-110); Magnesium 2.0 mg/dL (1.6-2.3); Potassium 3.7 mmol/L (3.4-5.0); Sodium 130 mmol/L (137-145); Total Protein 6.5 g/dL (6.3-8.2)
[2024-08-27 06:11] LABS: INR 1.0; Prothrombin Time 13.7 Seconds (11.1-14.7)
[2024-08-27 06:12] LABS: Partial Thromboplastin Time 28.1 Seconds (22.3-36.8)
[2024-08-27] MEDS: FLUTICASONE/UMECLIDIN/VILANTER 100-62.5-25 MCG ELLIPTA 1 PUFF INHALATION (08:01)
[2024-08-27 08:02] VITALS: O2SAT 98
[2024-08-27] MEDS: GABAPENTIN 100 MG CAPSULE PO (08:47)
[2024-08-27 08:55] VITALS: O2SAT 94
[2024-08-27] MEDS: HYDROmorphone HCL INJ (*CRX) 2 MG/ML VIAL 0.5 MG IV PUSH ×3 (10:01→20:21)
--- NOTE | 2024-08-27 11:38 | PM.IMPN ---
Progress Note: A&P Assessment and Plan (1) Paraplegia: Code(s): G82.20 - Paraplegia, unspecified Status: Acute Assessment and Plan: Patient presents with progressive loss of LE function with multiple falls. Chest CT showing sclerotic changes in T1 suggestive of metastatic lesion. Has numbness but dermatome dificult to assess. Also noted to have bilateral hydronephrosis. Given the LE paralysis and concern for metastatic CA, consider compressive spinal lesion causing her paralysis and possible urine retention. MR C/T/L spine ordered; follow up on results. PT/OT when able. (2) Neuropathic pain: Code(s): M79.2 - Neuralgia and neuritis, unspecified Status: Acute Assessment and Plan: Patient describes pins and needles feeling. Etiology uncertain but concern for spinal lesion. Gabapentin 100 mg t.i.d. initiated Fall precautions P.r.n. narcotics as needed for breakthrough pain (3) Mass of left lung: Code(s): R91.8 - Other nonspecific abnormal finding of lung field Status: Acute Assessment and Plan: Patient presents with weakness and found to have an abnormal chest imaging. CT Chest showing a pleural based mass LLL with associated adjacent 8th rib destruction concerning for malignancy Pulmonology consulted Will need tissue biopsy, possibly biopsy liver mass (4) Hydronephrosis: Code(s): N13.30 - Unspecified hydronephrosis Status: Acute Assessment and Plan: CT Chest findings as above. Also noted to have hypodensity in the liver which is suggestive of a mass as well as bilateral hydronephrosis. CT Abd/Pelvis showing multiple hypodensities in the liver which are highly suggestive of metastatic lesions, bilateral hydronephrotic changes with thickened wall of the urinary bladder, thickened wall of the jejunal small bowel loops suggestive of enteritis, multiple hypodensities in the bones which may indicate osteopenia versus metastatic lesions versus multiple myeloma and coongested vessels in the pelvis suggestive of pelvic congestion syndrome. Palomo placed prior to CT with 1L listed as output. Will need liver biopsy if patient and family agreeable. Plan for this on Thursday. (5) COPD (chronic obstructive pulmonary disease): Code(s): J44.9 - Chronic obstructive pulmonary disease, unspecified Status: Chronic Assessment and Plan: Stable. No wheezing. Remains on her 2L. Continue Trelegy. Albuterol prn Pulmonary following (6) Hypertension: Code(s): I10 - Essential (primary) hypertension Status: Chronic Assessment and Plan: Uncertain of what medications patient takes at home (nothing listed on her home med list) Hydralazine 10 mg p.o. t.i.d. available p.r.n. Added low dose Norvasc with benefit Monitor for now (7) Hypokalemia: Code(s): E87.6 - Hypokalemia Status: Acute Assessment and Plan: Potassium 3.2 on admission that was replaced. Follow and replace as needed (8) Chronic respiratory failure: Code(s): J96.10 - Chronic respiratory failure, unspecified whether with hypoxia or hypercapnia Status: Acute Assessment and Plan: Stable. As above. Plan DVT Prophylaxis - SCDs, Lovenox Code status - Full Subjective Date/time seen: 08/27/24 11:38 Interval history: 69yo female with COPD, HTN and chronic resp failure on 2L O2 here for leg weakness. Patient complains of increasing back pain to the right mid back. No CP or abd pain. She has numbness lower chest and down. Exam Narrative: AF 98.6 120/60 90 16 94% 2L Gen - thin female in NARD Chest - inspiratory crackles L>R CV - RRR S1/S2 Abd - Soft, NT/ND, Positive BS - Palomo secured and urine clear. Ext - No pedal edema Neuro - numbness noted below upper abd but exam limited Psych - uncomfortable. Skin - Warm and dry Objective Data Vital Signs Vital Signs: Vital Signs - 24 hr 08/26/24 14:00 08/26/24 19:37 08/26/24 22:00 Temperature 97.6 F 98 F Pulse Rate 102 H 84 Respiratory Rate 15 16 Blood Pressure 131/75 121/72 Pulse Oximetry 96 96 98 Oxygen Delivery Nasal Cannula Oxygen Flow Rate 2 08/27/24 05:24 08/27/24 08:02 08/27/24 08:55 Temperature 98.6 F Pulse Rate 90 Respiratory Rate 16 Blood Pressure 120/60 Pulse Oximetry 96 98 94 Oxygen Delivery Nasal Cannula Nasal Cannula Oxygen Flow Rate 2 2 Intake/Output Intake/Output: Intake & Output 08/24/24 08/25/24 08/26/24 08/27/24 23:59 23:59 23:59 23:59 Intake Total 1000 680 640 Output Total 2750 600 Balance 1000 -9850 40 Meds/Results Medications: Active Medications Generic Name Dose Route Start Last Admin Trade Name Freq PRN Reason Stop Dose Admin Acetaminophen 650 mg 08/26/24 00:45 Acetaminophen 325 Mg Tablet PO Q4H PRN Mild Pain (1-3) or Fever Hydrocodone Bitart/Acetaminophen 1 tab 08/26/24 00:45 08/27/24 08:54 Hydrocodone/Acetaminophen (*Crx) 5-325 Mg Tablet PO 1 tab Q4H PRN Administration Pain Rated 4-6 Albuterol 2.5 mg 08/26/24 03:09 Albuterol Sulfate Neb 2.5 Mg/3 Ml Inh INHALATION Q4HRT PRN Shortness Of Breath Amlodipine Besylate 2.5 mg 08/26/24 14:05 08/27/24 08:47 Amlodipine Besylate 2.5 Mg Tablet PO 2.5 mg QAM SABI Administration Fluticasone/Umeclidinium/Vilanterol 1 puff 08/27/24 08:00 08/27/24 08:01 Fluticasone/Umeclidin/Vilanter 100-62.5-25 Mcg Ellipta INHALATION 1 puff DAILYRT SABI Administration Gabapentin 100 mg 08/26/24 09:00 08/27/24 08:47 Gabapentin 100 Mg Capsule PO 100 mg TID SABI Administration Hydralazine HCl 10 mg 08/26/24 06:16 Hydralazine Hcl 20 Mg/Ml Vial IV PUSH Q8H PRN Blood Pressure - High Hydromorphone HCl 0.5 mg 08/26/24 00:45 08/27/24 10:01 Hydromorphone Hcl Inj (*Crx) 2 Mg/Ml Vial IV PUSH 0.5 mg Q4H PRN Administration Pain Rated 7-10 Ondansetron HCl 4 mg 08/26/24 00:45 08/26/24 01:14 Ondansetron Inj 4 Mg/2 Ml Vial IV PUSH 4 mg Q4H PRN Administration Nausea Radiology Results: ITS Impressions Chest X-Ray 08/25/24 21:13 IMPRESSION: Opacity in the left upper lobe which may be focal pneumonia versus a mass. Further evaluation advised Head CT 08/25/24 21:26 IMPRESSION: No acute intracranial findings. Chest CT 08/25/24 22:32 IMPRESSION: 1. No acute cardiopulmonary pathology. 2. Mass adjacent to the left eighth rib destruction which may be metastatic versus mesothelioma. Further evaluation advised. 3. Hypodensity in the liver which is highly suggestive of a mass. Further evaluation advised. 4. Bilateral hydronephrotic changes. 5. Sclerotic changes in the first thoracic vertebra suggestive of metastatic lesion. Further evaluation advised. Abdomen/Pelvis CT 08/26/24 16:37 IMPRESSION: 1. No evidence of appendicitis, diverticulitis or intestinal obstruction. 2. Multiple hypodensities in the liver which are highly suggestive of metastatic lesions. Further evaluation advised. 3. Bilateral hydronephrotic changes with thickened wall of the urinary bladder. 4. Thickened wall of the jejunal small bowel loops suggestive of enteritis. 5. Multiple hypodensities in the bones which may indicate osteopenia versus metastatic lesions versus multiple myeloma. Further evaluation advised. 6. Constipation. 7. Congested vessels in the pelvis suggestive of pelvic congestion syndrome. Labs Labs: Laboratory Results - last 24 hr 08/27/24 05:31 WBC 9.1 RBC 3.79 L Hgb 11.8 L Hct 36.9 L MCV 97.4 MCH 31.1 MCHC 32.0 RDW 14.3 Plt Count 360 MPV 8.6 Immature Gran % (Auto) 0.3 Neut % (Auto) 68.9 Lymph % (Auto) 14.7 L [place] % (Auto) 10.6 H Eos % (Auto) 4.9 H Baso % (Auto) 0.6 Lymph # (Auto) 1.33 [place] # (Auto) 1.0 H Eos # (Auto) 0.4 H Baso # (Auto) 0.1 Abs Immat Gran (auto) 0.03 Absolute Neuts (auto) 6.2 Absolute Nucleated RBC 0.000 Nucleated RBC % 0.0 PT 13.7 INR 1.0 APTT 28.1 Sodium 130 L Potassium 3.7 Chloride 92 L Carbon Dioxide 35 H Anion Gap 3 L BUN 17 Creatinine 0.58 L Estim Creat Clear Calc 55 Estimated GFR > 60 Glucose 125 H Calcium 9.1 Magnesium 2.0 Total Bilirubin 0.5 AST 56 H ALT 38 H Alkaline Phosphatase 71 Total Protein 6.5 Albumin 3.6
--- NOTE | 2024-08-27 12:13 | PC.NURSE ---
Patient off of unit to MRI
--- NOTE | 2024-08-27 13:34 | PCPTNOTE ---
Attempted PT evaluation, Per nursing (who spoke with hospitalist), hold pt for today. Will follow.
[2024-08-27 14:00] VITALS: BP 162/86; PULSE 79; RESP 16; TEMP 36.7; O2SAT 99
--- NOTE | 2024-08-27 15:01 | PCOTNOTE ---
The patient initial evaluation for occupational therapy was not able to be completed on 08/27 due to patient off the floor. Will plan to follow patient and evaluate when available.
[2024-08-27 20:00] VITALS: RESP 14; O2SAT 97
[2024-08-27 20:19] VITALS: BP 160/66; PULSE 103; RESP 14; TEMP 36.8; O2SAT 97
[2024-08-28] VITALS (7 sets, daily range): BP systolic 102–151; BP diastolic 54–88; PULSE 68–95; RESP 14–16; TEMP 36.2–37.1; O2SAT 97–100
[2024-08-28] MEDS: HYDROcodone/acetaminophen (*CRX) 5-325 MG TABLET 1 TAB PO ×2 (05:28→09:21)
[2024-08-28 06:07] LABS: Hematocrit 37.0 % (37.0-47.0); Hemoglobin 11.8 g/dL (12.0-15.0); Immature Granulocyte Percent A 0.6 % (0-0.5); Lymphocytes Absolute Auto 1.38 K/mm3 (0.9-3.2); Mean Corpuscular HGB Conc 31.9 g/dl (32-36); Mean Corpuscular Hemoglobin 31.0 pg (26-34); Mean Corpuscular Volume 97.1 fl (80-100); Nucleated Red Blood Cells Absolute Auto 0.000 K/mm3 (0.0-0.012); Nucleated Red Blood Cells Perc 0.0 % (0.0-0.2); Platelet Count Result 387 k/mm3 (150-375); Red Blood Count 3.81 M/mm3 (4.2-5.4); White Blood Count 11.1 K/mm3 (4.5-10.0)
[2024-08-28 06:17] LABS: Alanine Aminotransferase 32 U/L (6-35); Albumin Level 3.5 g/dL (3.5-5.1); Alkaline Phosphatase 72 U/L (38-126); Anion Gap 3 mmol/L (4-12); Aspartate Amino Transferase 63 U/L (14-36); Bilirubin,Total 0.4 mg/dL (0.2-1.3); Blood Urea Nitrogen 19 mg/dL (7-17); Calcium 9.1 mg/dL (8.4-10.2); Carbon Dioxide 37 mmol/L (22-30); Chloride 92 mmol/L (98-107); Estimated CRCL calculation 61 ml/min; Estimated Glomerular Filt Rate > 60; Glucose 92 mg/dL (65-110); Magnesium 2.1 mg/dL (1.6-2.3); Potassium 3.9 mmol/L (3.4-5.0); Sodium 132 mmol/L (137-145); Total Protein 6.4 g/dL (6.3-8.2)
[2024-08-28] MEDS: FLUTICASONE/UMECLIDIN/VILANTER 100-62.5-25 MCG ELLIPTA 1 PUFF INHALATION (07:35)
--- NOTE | 2024-08-28 08:59 | PCOTNOTE ---
The patient initial evaluation was not able to be completed on 08/28 due to patient refusing due to increased pain. Will plan to follow patient and evaluate when appropriate.
[2024-08-28] MEDS: GABAPENTIN 100 MG CAPSULE PO ×2 (09:21→17:29)
[2024-08-28] MEDS: HYDROmorphone HCL INJ (*CRX) 2 MG/ML VIAL 0.5 MG IV PUSH ×2 (09:30→19:52)
[2024-08-28] MEDS: ENOXAPARIN 40 MG/0.4 ML SYRINGE SUB-Q (09:34)
[2024-08-28] MEDS: dexAMETHasone SOD PHOS INJ 10 MG/ML 1 ML VIAL IV PUSH (11:25)
--- NOTE | 2024-08-28 14:06 | P.CONNS_ITS ---
Assessment and Plan Assessment and plan (1) Paraplegia: Code(s): G82.20 - Paraplegia, unspecified Status: Acute (2) Metastatic disease: Code(s): C79.9 - Secondary malignant neoplasm of unspecified site Status: Acute Plan Ms. Pierre is a 69-year-old female with a long smoking history who presented to the hospital on August 25 with progressive weakness and numbness in her lower extremities. She has been unable to move her legs for 2 days according to her . She has no movement in her legs to command or to pain on my exam, and she seems to have a sensory level around her umbilicus. She had a urinary catheter placed 2 days ago with 1L urine out, and her abdomen is distended. She had an MRI lumbar spine performed yesterday showing a small mass in the dorsal aspect of the spinal canal at L4 which is not causing any significant nerve compression. I am highly suspicious that she has a mass in her thoracic spine causing spinal cord compression. I asked her nurse to start IV decadron which the patient has received. I have called MRI to notify them of the emergent need to complete her imaging ROSMERY, and she is going down now for the scan. I anticipate she will need surgical intervention emergently as well, although I am not sure how much neurologic recovery she will be able to achieve given the duration of her paraplegia. I have placed NPO orders and will plan to administer protamine to reverse this morning's lovenox if we proceed with surgery. Consult date: 08/28/24 HPI: Kiley Pierre is a 69 year old female with history of COPD who presented to the hospital on August 25 with progressive lower-extremity weakness and numbness. Her states she has had gradually worsening back pain for the past few months across the mid-thoracic area. She was ambulatory and otherwise herself as of August 23. The following day, she was quite unsteady with walking, and by that night, she was unable to walk. He brought her here on August [address] imaging in the ER revealed a lung mass with liver and bony lesions as well. She had an MRI lumbar spine yesterday, but due to significant pain, she was unable to complete the cervical and thoracic imaging. I was consulted for lower- extremity paralysis today at 10:50am. The patient is somewhat confused and lethargic and unable to provide much history. Per her , she has been complaining of burning pain throughout her body. He has not seen her move her legs in 2 days. She had a oquendo catheter placed on August 26 with 1L of urine out. He does not think she has had a bowel movement in 4 days. She has not been complaining of symptoms in her upper extremities. She uses oxygen at baseline for the last year. She previously smoked for 50 years but quit last year. He is not aware of any other significant medical issues. She does not take blood thinners. Review of Systems 2 Review of Systems: All systems reviewed & are unremarkable except as noted in HPI and below PMFSH Past Medical History Medical History (Updated 08/28/24 @ 14:17 by Mariel Dupree MD) Chronic respiratory failure Hypokalemia Hypertension COPD (chronic obstructive pulmonary disease) Abnormality of gait and mobility Abnormal findings on imaging test Mass of left lung Neuropathic pain Family History Family History (Updated 08/26/24 @ 04:18 by Tracy Torres RN) Father Diabetes mellitus Social History Social History Smoking packs per day: 1 Smoking cigarettes per day: 20.0 Years smoked: 20 Smoking pack-years: 20.00 Smoking status: Former smoker Tobacco type: cigarettes Second hand tobacco smoke exposure: Yes Spiritual care concerns: No Meds Home Medications and Allergies Home Medications ?Medication ?Instructions ?Recorded ?Confirmed ?Type albuterol sulfate 90 mcg/actuation 1 puff inhalation Q4H PRN 08/26/24 08/26/24 History aerosol inhaler shortness of breath or wheezing atorvastatin 10 mg tablet 10 mg PO QPM 08/26/24 08/26/24 History budesonide 160 mcg-glycopyr 9 2 inh inhalation BID 08/26/24 08/26/24 History mcg-formot 4.8 mcg/actuation HFA inhaler (Breztri Aerosphere) Allergies Allergy/AdvReac Type Severity Reaction Status Date / Time egg Allergy Severe Anaphylaxis Verified 08/26/24 04:04 peanut Allergy Severe Cough Verified 08/26/24 04:04 chicken derived Allergy Intermediate Cough Verified 08/26/24 04:04 codeine Allergy Intermediate Cough Verified 08/26/24 04:04 turkey Allergy Mild Cough Verified 08/26/24 04:04 chocolate Allergy Unknown Unknown Verified 08/26/24 04:04 Vital Signs Vital Signs - 24 hr 08/27/24 20:00 08/27/24 20:19 08/28/24 05:35 Temperature 98.2 F 97.1 F L Pulse Rate 103 H 95 Respiratory Rate 14 14 14 Blood Pressure 160/66 H 151/80 H Pulse Oximetry 97 97 100 Oxygen Delivery Nasal Cannula Oxygen Flow Rate 2 08/28/24 07:35 08/28/24 08:00 Temperature Pulse Rate Respiratory Rate Blood Pressure Pulse Oximetry 98 98 Oxygen Delivery Nasal Cannula Nasal Cannula Oxygen Flow Rate 2 2 Exam 2 Narrative: Oriented to person and place but not year Abdomen is distended Sensory level around T10 No voluntary or involuntary movement in lower extremities No sensation in lower extremities No abnormal reflexes Urinary catheter in place Unless otherwise stated above, the patient's physical exam is as follows: General: -Well developed and well nourished. No a cute distress. Cooperative with exam. Mental status: -Awake and oriented to person, place, an d time. Integumentary: -No obvious skin lesions or masses Motor: -Muscle tone normal without spasticity o f flaccidity. No atrophy. No fasciculations. -No pronator drift -Right upper extremity: deltoid 5/5, bic eps 5/5, triceps 5/5, wrist extensors 5/5, wrist flexors 5/5, intrinsics 5/5 -Left upper extremity: deltoid 5/5, odell ps 5/5, triceps 5/5, wrist extensors 5/5, wrist flexors 5/5, intrinsics 5/5 -Right lower extremity: iliopsoas 5/5, q uadriceps 5/5, hamstrings 5/5, tibialis anterior 5/5, gastroc-soleus 5/5, EHL 5/5 -Left lower extremity: iliopsoas 5/5, qu adriceps 5/5, hamstrings 5/5, tibialis anterior 5/5, gastroc-soleus 5/5, EHL 5/5 Sensory: -Intact to light touch throughout -Normal proprioception throughout Reflexes: -1-2+ DTR's throughout -No Mcdonald's, clonus, or Babinski bilat erally Results Labs 08/28/24 05:38 08/28/24 05:38 Labs: Short CBC 08/28/24 Range/Units 05:38 WBC 11.1 H (4.5-10.0) K/mm3 Hgb 11.8 L (12.0-15.0) g/dL Hct 37.0 (37.0-47.0) % Plt Count 387 H (150-375) k/mm3 BMP 08/28/24 05:38 Sodium 132 L Potassium 3.9 Chloride 92 L Carbon Dioxide 37 H BUN 19 H Creatinine 0.51 L Glucose 92 Calcium 9.1 Liver Function 08/28/24 Range/Units 05:38 Total Bilirubin 0.4 (0.2-1.3) mg/dL AST 63 H (14-36) U/L ALT 32 (6-35) U/L Alkaline Phosphatase 72 (38-126) U/L Albumin 3.5 (3.5-5.1) g/dL Imaging My impression: I personally reviewed the MRI lumbar spine which shows a small mass on the dorsal aspect of the spinal canal at L4 which is not causing any significant compression of the neural elements
[2024-08-28] MEDS: diazePAM INJ (*CRX) 10 MG/2 ML SYRINGE 5 MG IM (14:09)
--- NOTE | 2024-08-28 14:33 | PM.IMPN ---
Progress Note: A&P Assessment and Plan (1) Paraplegia: Code(s): G82.20 - Paraplegia, unspecified Status: Acute Assessment and Plan: Patient presents with progressive loss of LE function with multiple falls. Chest CT showing sclerotic changes in T1 suggestive of metastatic lesion. Has numbness but dermatome dificult to assess. Also noted to have bilateral hydronephrosis. Given the LE paralysis and concern for metastatic CA, consider compressive spinal lesion causing her paralysis and possible urine retention. MR C/T/L spine ordered but not able to completed yesterday. Able to get a noncontrast lumbar spine MR showing metastatic lesion involving the posterior elements of L4, with extradural extension causing mild central canal stenosis. DO not believe this is the etiology. Plan for MR today for cervical and thoracic. PT/OT when able. (2) Neuropathic pain: Code(s): M79.2 - Neuralgia and neuritis, unspecified Status: Acute Assessment and Plan: Patient describes pins and needles feeling. Etiology uncertain but concern for spinal lesion. Gabapentin 100 mg t.i.d. initiated Fall precautions P.r.n. narcotics as needed for breakthrough pain (3) Mass of left lung: Code(s): R91.8 - Other nonspecific abnormal finding of lung field Status: Acute Assessment and Plan: Patient presents with weakness and found to have an abnormal chest imaging. CT Chest showing a pleural based mass LLL with associated adjacent 8th rib destruction concerning for malignancy Pulmonology consulted Bryan has suggested that patient may not want cancer treatment and wondered if worth going through further evaluation. Will need tissue biopsy, possibly biopsy liver mass. Will discuss with about liver biopsy to see if this is appropriate. (4) Hydronephrosis: Code(s): N13.30 - Unspecified hydronephrosis Status: Acute Assessment and Plan: CT Chest findings as above. Also noted to have hypodensity in the liver which is suggestive of a mass as well as bilateral hydronephrosis. Lumbar MR showing metastatic disease. CT Abd/Pelvis showing multiple hypodensities in the liver which are highly suggestive of metastatic lesions, bilateral hydronephrotic changes with thickened wall of the urinary bladder, thickened wall of the jejunal small bowel loops suggestive of enteritis, multiple hypodensities in the bones which may indicate osteopenia versus metastatic lesions versus multiple myeloma and congested vessels in the pelvis suggestive of pelvic congestion syndrome. Palomo placed prior to CT with 1L listed as output. Will need liver biopsy if patient and family agreeable. Plan for this on Thursday. (5) COPD (chronic obstructive pulmonary disease): Code(s): J44.9 - Chronic obstructive pulmonary disease, unspecified Status: Chronic Assessment and Plan: Stable. No wheezing. Remains on her 2L. Continue Trelegy. Albuterol prn Pulmonary following (6) Hypertension: Code(s): I10 - Essential (primary) hypertension Status: Chronic Assessment and Plan: Uncertain of what medications patient takes at home (nothing listed on her home med list) Hydralazine 10 mg p.o. t.i.d. available p.r.n. Added low dose Norvasc with benefit Monitor for now (7) Hypokalemia: Code(s): E87.6 - Hypokalemia Status: Acute Assessment and Plan: Potassium 3.2 on admission that was replaced. Follow and replace as needed (8) Chronic respiratory failure: Code(s): J96.10 - Chronic respiratory failure, unspecified whether with hypoxia or hypercapnia Status: Acute Assessment and Plan: Stable. As above. Plan DVT Prophylaxis - SCDs, Lovenox Code status - Full Subjective Date/time seen: 08/28/24 14:33 Interval history: 69yo female with COPD, HTN and chronic resp failure on 2L O2 here for leg weakness. Patient denies back pain and now having left arm pain. She is having difficulty providing further details about this complaint. She has been screaming out to even light touch. Review of Systems Review of Systems: ROS unobtainable: Yes unobtainable due to mental status Exam Narrative: AF 97.1 151/80 95 14 98% 2L Gen - thin female in NARD Chest - clear anteriorly and in the flanks. CV - RRR S1/S2 Abd - Soft, mildly protuberant and tympanitic. - Palomo secured and urine clear. Ext - No pedal edema Neuro - some sensation to the LE. no position sense to toes. Somnolent from recent medications Psych - resting comfortable since just received narcotics. Skin - Warm and dry Objective Data Vital Signs Vital Signs: Vital Signs - 24 hr 08/27/24 20:00 08/27/24 20:19 08/28/24 05:35 Temperature 98.2 F 97.1 F L Pulse Rate 103 H 95 Respiratory Rate 14 14 14 Blood Pressure 160/66 H 151/80 H Pulse Oximetry 97 97 100 Oxygen Delivery Nasal Cannula Oxygen Flow Rate 2 08/28/24 07:35 08/28/24 08:00 Temperature Pulse Rate Respiratory Rate Blood Pressure Pulse Oximetry 98 98 Oxygen Delivery Nasal Cannula Nasal Cannula Oxygen Flow Rate 2 2 Intake/Output Intake/Output: Intake & Output 08/25/24 08/26/24 08/27/24 08/28/24 23:59 23:59 23:59 23:59 Intake Total 1000 680 690 290 Output Total 2750 800 200 Balance 1000 2069 -110 90 Meds/Results Medications: Active Medications Generic Name Dose Route Start Last Admin Trade Name Freq PRN Reason Stop Dose Admin Acetaminophen 650 mg 08/26/24 00:45 Acetaminophen 325 Mg Tablet PO Q4H PRN Mild Pain (1-3) or Fever Hydrocodone Bitart/Acetaminophen 1 tab 08/26/24 00:45 08/28/24 09:21 Hydrocodone/Acetaminophen (*Crx) 5-325 Mg Tablet PO 1 tab Q4H PRN Administration Pain Rated 4-6 Albuterol 2.5 mg 08/26/24 03:09 Albuterol Sulfate Neb 2.5 Mg/3 Ml Inh INHALATION Q4HRT PRN Shortness Of Breath Amlodipine Besylate 2.5 mg 08/26/24 14:05 08/28/24 09:21 Amlodipine Besylate 2.5 Mg Tablet PO 2.5 mg QAM SABI Administration Dexamethasone Sodium Phosphate 4 mg 08/28/24 18:00 Dexamethasone Sod Phos Inj 4 Mg/Ml Vial IV PUSH Q6HR SABI Fluticasone/Umeclidinium/Vilanterol 1 puff 08/27/24 08:00 08/28/24 07:35 Fluticasone/Umeclidin/Vilanter 100-62.5-25 Mcg Ellipta INHALATION 1 puff DAILYRT SABI Administration Gabapentin 100 mg 08/26/24 09:00 08/28/24 14:23 Gabapentin 100 Mg Capsule PO Not Given TID SABI Hydralazine HCl 10 mg 08/26/24 06:16 Hydralazine Hcl 20 Mg/Ml Vial IV PUSH Q8H PRN Blood Pressure - High Hydromorphone HCl 0.5 mg 08/26/24 00:45 08/28/24 09:30 Hydromorphone Hcl Inj (*Crx) 2 Mg/Ml Vial IV PUSH 0.5 mg Q4H PRN Administration Pain Rated 7-10 Ondansetron HCl 4 mg 08/26/24 00:45 08/26/24 01:14 Ondansetron Inj 4 Mg/2 Ml Vial IV PUSH 4 mg Q4H PRN Administration Nausea Radiology Results: ITS Impressions Chest X-Ray 08/25/24 21:13 IMPRESSION: Opacity in the left upper lobe which may be focal pneumonia versus a mass. Further evaluation advised Head CT 08/25/24 21:26 IMPRESSION: No acute intracranial findings. Chest CT 08/25/24 22:32 IMPRESSION: 1. No acute cardiopulmonary pathology. 2. Mass adjacent to the left eighth rib destruction which may be metastatic versus mesothelioma. Further evaluation advised. 3. Hypodensity in the liver which is highly suggestive of a mass. Further evaluation advised. 4. Bilateral hydronephrotic changes. 5. Sclerotic changes in the first thoracic vertebra suggestive of metastatic lesion. Further evaluation advised. Abdomen/Pelvis CT 08/26/24 16:37 IMPRESSION: 1. No evidence of appendicitis, diverticulitis or intestinal obstruction. 2. Multiple hypodensities in the liver which are highly suggestive of metastatic lesions. Further evaluation advised. 3. Bilateral hydronephrotic changes with thickened wall of the urinary bladder. 4. Thickened wall of the jejunal small bowel loops suggestive of enteritis. 5. Multiple hypodensities in the bones which may indicate osteopenia versus metastatic lesions versus multiple myeloma. Further evaluation advised. 6. Constipation. 7. Congested vessels in the pelvis suggestive of pelvic congestion syndrome. Lumbar Spine MRI 08/27/24 14:53 IMPRESSION: Metastatic lesion involving the posterior elements of L4, with extradural extension. Labs Labs: Laboratory Results - last 24 hr 08/28/24 05:38 WBC 11.1 H RBC 3.81 L Hgb 11.8 L Hct 37.0 MCV 97.1 MCH 31.0 MCHC 31.9 L RDW 14.0 Plt Count 387 H MPV 8.7 Immature Gran % (Auto) 0.6 H Neut % (Auto) 72.3 Lymph % (Auto) 12.4 L Loving % (Auto) 12.2 H Eos % (Auto) 2.2 Baso % (Auto) 0.3 Lymph # (Auto) 1.38 Loving # (Auto) 1.4 H Eos # (Auto) 0.2 Baso # (Auto) 0.0 Abs Immat Gran (auto) 0.07 H Absolute Neuts (auto) 8.0 H Absolute Nucleated RBC 0.000 Nucleated RBC % 0.0 Sodium 132 L Potassium 3.9 Chloride 92 L Carbon Dioxide 37 H Anion Gap 3 L BUN 19 H Creatinine 0.51 L Estim Creat Clear Calc 61 Estimated GFR > 60 Glucose 92 Calcium 9.1 Phosphorus 3.8 Magnesium 2.1 Total Bilirubin 0.4 AST 63 H ALT 32 Alkaline Phosphatase 72 Total Protein 6.4 Albumin 3.5
[2024-08-28 17:15] LABS: Immunoglobulin A 96 mg/dL (70-400); Immunoglobulin G 951 mg/dL (700-1600); Immunoglobulin M 102 mg/dL (40-230)
[2024-08-29 04:48] VITALS: BP 152/71; PULSE 84; RESP 16; TEMP 36.3; O2SAT 98
[2024-08-29] MEDS: HYDROcodone/acetaminophen (*CRX) 5-325 MG TABLET 1 TAB PO ×3 (06:03→17:36)
[2024-08-29] MEDS: FLUTICASONE/UMECLIDIN/VILANTER 100-62.5-25 MCG ELLIPTA 1 PUFF INHALATION (07:24)
[2024-08-29 07:25] VITALS: O2SAT 95
[2024-08-29 08:00] VITALS: O2SAT 95
--- NOTE | 2024-08-29 08:02 | PCPTNOTE ---
Spoke Dr. Farrar. MORALES to remove therapy orders at this time.
[2024-08-29] MEDS: GABAPENTIN 100 MG CAPSULE PO ×3 (09:00→17:36)
--- NOTE | 2024-08-29 11:52 | PCNFU ---
Nutrition Follow-Up Complete: Suboptimal po intake related to appetite as evidenced by pt's family report and charted intake. PO intake 50% or greater for meals and supplements - Progressing intakes 0-70%, continue with same goal Goal: Pt current nutrition is Regular diet, Ensure HP+ TID (350 kcal, 20 g protein each). Nutrition recommendation: No new recommendations. Continue current nutrition care plan and orders. Agree with orders Last recorded weight is 46 kg. Bowel Motility: 0 BMs charted Labs Reviewed: Hgb 11.8, Na 132, BUN 19, Cre 0.51 Meds Noted: Dexamethasone, miralax, Senna Skin: No skin issues Additional Notes: Intakes remain fair to poor. Pt leaning toward hospice related to mass on spine. Supplements are ordered. Monitor intake, wt, labs. Follow up in 3 days.
[2024-08-29 14:00] VITALS: BP 135/59; PULSE 83; RESP 16; TEMP 36.7; O2SAT 94
--- NOTE | 2024-08-29 17:40 | PM.IMPN ---
Progress Note: A&P Assessment and Plan (1) Paraplegia: Code(s): G82.20 - Paraplegia, unspecified Status: Acute Assessment and Plan: Patient presents with progressive loss of LE function with multiple falls. Chest CT showing sclerotic changes in T1 suggestive of metastatic lesion. MR C/T/L spine showing a metastatic disease at T1, T8 and T9 with moderate central canal stenosis at T1 and severe at T7-9. Lumbar MR showing metastatic lesion involving the posterior elements of L4, with extradural extension causing mild central canal stenosis. Neurosurgery consulted but family decided to proceed with comfort measures. Family meeting with hospice today. (2) Neuropathic pain: Code(s): M79.2 - Neuralgia and neuritis, unspecified Status: Acute Assessment and Plan: Patient describes pins and needles feeling. Etiology related to spinal lesions. Gabapentin 100 mg t.i.d. initiated Fall precautions P.r.n. narcotics as needed for breakthrough pain (3) Mass of left lung: Code(s): R91.8 - Other nonspecific abnormal finding of lung field Status: Acute Assessment and Plan: Patient presents with weakness and found to have an abnormal chest imaging. CT Chest showing a pleural based mass LLL with associated adjacent 8th rib destruction concerning for malignancy Pulmonology consulted Spoke with significant other and he did not want to proceed with further workup and has elected for comfort measures. (4) Hydronephrosis: Code(s): N13.30 - Unspecified hydronephrosis Status: Acute Assessment and Plan: CT Chest findings as above. Also noted to have hypodensity in the liver which is suggestive of a mass as well as bilateral hydronephrosis. Lumbar MR showing metastatic disease. CT Abd/Pelvis showing multiple hypodensities in the liver which are highly suggestive of metastatic lesions, bilateral hydronephrotic changes with thickened wall of the urinary bladder, thickened wall of the jejunal small bowel loops suggestive of enteritis, multiple hypodensities in the bones which may indicate osteopenia versus metastatic lesions versus multiple myeloma and congested vessels in the pelvis suggestive of pelvic congestion syndrome. Palomo placed prior to CT with 1L listed as output. Continue Palomo (5) COPD (chronic obstructive pulmonary disease): Code(s): J44.9 - Chronic obstructive pulmonary disease, unspecified Status: Chronic Assessment and Plan: COPD with chronic resp failure on home O2 at 2L. Stable. No wheezing. Remains on her 2L. Continue Trelegy. Albuterol prn Pulmonary has signed off (6) Hypertension: Code(s): I10 - Essential (primary) hypertension Status: Chronic Assessment and Plan: Uncertain of what medications patient takes at home (nothing listed on her home med list) Hydralazine 10 mg p.o. t.i.d. available p.r.n. Added low dose Norvasc with benefit Monitor for now (7) Hypokalemia: Code(s): E87.6 - Hypokalemia Status: Acute Assessment and Plan: Potassium 3.2 on admission that was replaced. (8) Chronic respiratory failure: Code(s): J96.10 - Chronic respiratory failure, unspecified whether with hypoxia or hypercapnia Status: Acute Assessment and Plan: Stable. As above. Plan DVT Prophylaxis - SCDs, Lovenox Code status - Full Subjective Date/time seen: 08/29/24 17:40 Interval history: 69yo female with COPD, HTN and chronic resp failure on 2L O2 here for leg weakness. Patient stil having back pain but okay if she lays still. No CP. Exam Narrative: AF 98.1 135/59 83 16 94% 2L Gen - thin female in NARD Chest - clear anteriorly. CV - RRR S1/S2 Abd - Ssoft, scaphoid - Palomo secured and urine clear. Ext - No pedal edema Neuro - ore awake, alert and oriented but still confused at times Psych - nml mood Skin - Warm and dry Objective Data Vital Signs Vital Signs: Vital Signs - 24 hr 08/28/24 20:00 08/28/24 20:03 08/28/24 22:00 Temperature 97.7 F Pulse Rate 68 Respiratory Rate 16 Blood Pressure 102/54 L Pulse Oximetry 97 97 99 Oxygen Delivery Nasal Cannula Nasal Cannula Oxygen Flow Rate 2 2 08/29/24 04:48 08/29/24 07:25 08/29/24 08:00 Temperature 97.4 F L Pulse Rate 84 Respiratory Rate 16 Blood Pressure 152/71 H Pulse Oximetry 98 95 95 Oxygen Delivery Nasal Cannula Nasal Cannula Oxygen Flow Rate 2 2 08/29/24 14:00 Temperature 98.1 F Pulse Rate 83 Respiratory Rate 16 Blood Pressure 135/59 L Pulse Oximetry 94 Oxygen Delivery Oxygen Flow Rate Intake/Output Intake/Output: Intake & Output 08/26/24 08/27/24 08/28/24 08/29/24 23:59 23:59 23:59 23:59 Intake Total 680 446 615 8406 Output Total 5239 800 525 600 Balance -2070 -110 -115 790 Meds/Results Medications: Active Medications Generic Name Dose Route Start Last Admin Trade Name Freq PRN Reason Stop Dose Admin Acetaminophen 650 mg 08/26/24 00:45 Acetaminophen 325 Mg Tablet PO Q4H PRN Mild Pain (1-3) or Fever Hydrocodone Bitart/Acetaminophen 1 tab 08/26/24 00:45 08/29/24 17:36 Hydrocodone/Acetaminophen (*Crx) 5-325 Mg Tablet PO 1 tab Q4H PRN Administration Pain Rated 4-6 Albuterol 2.5 mg 08/26/24 03:09 Albuterol Sulfate Neb 2.5 Mg/3 Ml Inh INHALATION Q4HRT PRN Shortness Of Breath Amlodipine Besylate 2.5 mg 08/26/24 14:05 08/29/24 08:59 Amlodipine Besylate 2.5 Mg Tablet PO 2.5 mg QAM SABI Administration Dexamethasone Sodium Phosphate 4 mg 08/28/24 18:00 08/29/24 17:36 Dexamethasone Sod Phos Inj 4 Mg/Ml Vial IV PUSH 4 mg Q6HR SABI Administration Fluticasone/Umeclidinium/Vilanterol 1 puff 08/27/24 08:00 08/29/24 07:24 Fluticasone/Umeclidin/Vilanter 100-62.5-25 Mcg Ellipta INHALATION 1 puff DAILYRT SABI Administration Gabapentin 100 mg 08/26/24 09:00 08/29/24 17:36 Gabapentin 100 Mg Capsule PO 100 mg TID SABI Administration Hydralazine HCl 10 mg 08/26/24 06:16 Hydralazine Hcl 20 Mg/Ml Vial IV PUSH Q8H PRN Blood Pressure - High Hydromorphone HCl 0.5 mg 08/26/24 00:45 08/28/24 19:52 Hydromorphone Hcl Inj (*Crx) 2 Mg/Ml Vial IV PUSH 0.5 mg Q4H PRN Administration Pain Rated 7-10 Ondansetron HCl 4 mg 08/26/24 00:45 08/26/24 01:14 Ondansetron Inj 4 Mg/2 Ml Vial IV PUSH 4 mg Q4H PRN Administration Nausea Polyethylene Glycol 17 gm 08/28/24 17:00 08/29/24 17:36 Polyethylene Glycol 3350 17 Gm Powd.Pack PO 17 gm BID SABI Administration Senna 8.6 mg 08/28/24 21:00 08/28/24 20:29 Sennosides 8.6 Mg Tablet PO Not Given HS [facility] Radiology Results: ITS Impressions Chest X-Ray 08/25/24 21:13 IMPRESSION: Opacity in the left upper lobe which may be focal pneumonia versus a mass. Further evaluation advised Head CT 08/25/24 21:26 IMPRESSION: No acute intracranial findings. Chest CT 08/25/24 22:32 IMPRESSION: 1. No acute cardiopulmonary pathology. 2. Mass adjacent to the left eighth rib destruction which may be metastatic versus mesothelioma. Further evaluation advised. 3. Hypodensity in the liver which is highly suggestive of a mass. Further evaluation advised. 4. Bilateral hydronephrotic changes. 5. Sclerotic changes in the first thoracic vertebra suggestive of metastatic lesion. Further evaluation advised. Abdomen/Pelvis CT 08/26/24 16:37 IMPRESSION: 1. No evidence of appendicitis, diverticulitis or intestinal obstruction. 2. Multiple hypodensities in the liver which are highly suggestive of metastatic lesions. Further evaluation advised. 3. Bilateral hydronephrotic changes with thickened wall of the urinary bladder. 4. Thickened wall of the jejunal small bowel loops suggestive of enteritis. 5. Multiple hypodensities in the bones which may indicate osteopenia versus metastatic lesions versus multiple myeloma. Further evaluation advised. 6. Constipation. 7. Congested vessels in the pelvis suggestive of pelvic congestion syndrome. Lumbar Spine MRI 08/27/24 14:53 IMPRESSION: Metastatic lesion involving the posterior elements of L4, with extradural extension. Thoracic Spine MRI 08/28/24 16:22 IMPRESSION: 1. The marrow replacing lesions consistent with metastatic disease centered at T1, T8 and T9 with prominent extraosseous extension. This most notable for secondary moderate central canal stenosis at T1, severe at T7-T9 and severe neural foraminal stenosis on the left at T1-T2, C7-T1 and T1-T2 as well as at T7-T8 and T8-T9 and on the right at T9-T10. 2. Increased cord signal at T7 and T9 on either side of the severe central canal stenosis. 3. Otherwise mild to moderate thoracic spondylosis.
--- NOTE | 2024-08-29 19:25 | WPDONCCN ---
Assessment and Plan Assessment and plan (1) Metastatic disease: Code(s): C79.9 - Secondary malignant neoplasm of unspecified site Status: Acute Assessment and Plan: Likely metastatic lung cancer. Patient is a 69-year-old female with history of COPD, chronic kidney disease, hypertension who has been on chronic supplemental oxygen use. Patient has a history of smoking about 50 years duration and quit about a year ago. Imaging study finding noted and discussed with the son and the patient in detail. We discussed the likelihood of metastatic non-small cell lung cancer with the management and prognosis in detail. I also discussed palliative treatment with chemotherapy and radiation therapy for neurological improvement. I also discussed diagnostic tests like liver biopsy. Patient wants to think about this overnight and would let me know. I will start Decadron 4 mg t.i.d. for cord compression from metastatic disease. I will also ask Radiation Oncology consultation. Patient would let us know if she wants to proceed with any form of treatment or just hospice care after discussing with the family tomorrow. I have answered all the questions to patient and the family satisfaction. HPI Data of Consult Date/Time: 08/29/24 19:25 Requesting Physician: Eb Hoover MD Primary Care Provider: UNKNOWN,DOCTOR Consult Narrative Narrative: Kiley Pierre is a 69 year old female with history of smoking for about 50 years duration quit 1 year ago along with history of COPD, hypertension, chronic kidney disease, hyperlipidemia who has been on chronic supplemental oxygen at home came into the hospital with bilateral lower extremity weakness and numbness started few days ago. She has a very poor historian and has been dealing with some intermittent confusion. She denies any excessive weight loss. CT chest on August 25 showed mass adjacent to the left 8 rib causing destruction could be metastatic disease versus mesothelioma. Hypodensity in the liver suggestive of a mass. CT abdomen showed multiple hypodensity in the liver highly suggestive of metastatic disease and multiple hypodensities in the bone likely metastatic disease versus multiple myeloma. Thoracic MRI showed marrow replacing lesion at T1, T8 and T9 with/extraosseous extension with increased cord signal at T7 and T9 with severe central canal stenosis. MRI of lumbar spine showed metastatic lesion involving the L4 with extradural extension. Neurosurgery was consulted and decided against any 1st or surgery due to metastatic disease. Review of Systems Review of Systems: Twelve point review of systems [facility] Past Medical History Medical History (Updated 08/28/24 @ 14:17 by Mariel Dupree MD) Chronic respiratory failure Hypokalemia Hypertension COPD (chronic obstructive pulmonary disease) Abnormality of gait and mobility Abnormal findings on imaging test Mass of left lung Neuropathic pain Family History Family History (Updated 08/26/24 @ 04:18 by Tracy Torres RN) Father Diabetes mellitus Social History Social History Smoking packs per day: 1 Smoking cigarettes per day: 20.0 Years smoked: 20 Smoking pack-years: 20.00 Smoking status: Former smoker Tobacco type: cigarettes Second hand tobacco smoke exposure: Yes Spiritual care concerns: No Meds Home Medications and Allergies Home Medications ?Medication ?Instructions ?Recorded ?Confirmed ?Type albuterol sulfate 90 mcg/actuation 1 puff inhalation Q4H PRN 08/26/24 08/26/24 History aerosol inhaler shortness of breath or wheezing atorvastatin 10 mg tablet 10 mg PO QPM 08/26/24 08/26/24 History budesonide 160 mcg-glycopyr 9 2 inh inhalation BID 08/26/24 08/26/24 History mcg-formot 4.8 mcg/actuation HFA inhaler (Breztri Aerosphere) Allergies Allergy/AdvReac Type Severity Reaction Status Date / Time egg Allergy Severe Anaphylaxis Verified 08/26/24 04:04 peanut Allergy Severe Cough Verified 08/26/24 04:04 chicken derived Allergy Intermediate Cough Verified 08/26/24 04:04 codeine Allergy Intermediate Cough Verified 08/26/24 04:04 turkey Allergy Mild Cough Verified 08/26/24 04:04 chocolate Allergy Unknown Unknown Verified 08/26/24 04:04 Vital Signs Vital Signs - 24 hr 08/28/24 20:00 08/28/24 20:03 08/28/24 22:00 Temperature 36.5 C Pulse Rate 68 Respiratory Rate 16 Blood Pressure 102/54 L Pulse Oximetry 97 97 99 Oxygen Delivery Nasal Cannula Nasal Cannula Oxygen Flow Rate 2 2 08/29/24 04:48 08/29/24 07:25 08/29/24 08:00 Temperature 36.3 C L Pulse Rate 84 Respiratory Rate 16 Blood Pressure 152/71 H Pulse Oximetry 98 95 95 Oxygen Delivery Nasal Cannula Nasal Cannula Oxygen Flow Rate 2 2 08/29/24 14:00 Temperature 36.7 C Pulse Rate 83 Respiratory Rate 16 Blood Pressure 135/59 L Pulse Oximetry 94 Oxygen Delivery Oxygen Flow Rate Exam Narrative: Lungs are clear to auscultation bilaterally Cardiovascular regular rate rhythm no murmurs Abdomen soft nontender nondistended Extremities no edema Results Labs 08/28/24 05:38 08/28/24 05:38
[2024-08-29 19:55] VITALS: BP 117/54; PULSE 78; RESP 18; TEMP 36.6; O2SAT 95
[2024-08-29 20:00] VITALS: O2SAT 96
[2024-08-29] MEDS: SENNOSIDES 8.6 MG TABLET PO (21:25)
[2024-08-30 05:17] VITALS: BP 126/58; PULSE 62; RESP 16; TEMP 36.6; O2SAT 98
[2024-08-30] MEDS: FLUTICASONE/UMECLIDIN/VILANTER 100-62.5-25 MCG ELLIPTA 1 PUFF INHALATION (09:03)
[2024-08-30 09:04] VITALS: PULSE 79; RESP 20; O2SAT 91
[2024-08-30] MEDS: HYDROcodone/acetaminophen (*CRX) 5-325 MG TABLET 1 TAB PO ×3 (09:04→21:01)
[2024-08-30] MEDS: GABAPENTIN 100 MG CAPSULE PO ×3 (09:04→17:04)
[2024-08-30 09:50] VITALS: O2SAT 91
--- NOTE | 2024-08-30 12:54 | PM.IMPN ---
Progress Note: A&P Assessment and Plan (1) Paraplegia: Code(s): G82.20 - Paraplegia, unspecified Status: Acute Assessment and Plan: Patient presents with progressive loss of LE function with multiple falls. Chest CT showing sclerotic changes in T1 suggestive of metastatic lesion. MR T/L spine showing a metastatic disease at T1, T8 and T9 with moderate central canal stenosis at T1 and severe at T7-9. Lumbar MR showing metastatic lesion involving the posterior elements of L4, with extradural extension causing mild central canal stenosis. Neurosurgery consulted but family decided to proceed with comfort measures. Family met with hospice and they are considering comfort measures. Patient is alert and sometimes oriented but do not believe she has ability to full comprehend options for her care. Spent 30 minutes speaking with significant other and son today. Discussed care options including the risks and benefits of potential treatment options. All questions answered. Explained that the longer we delay decision, less likely spinal treatment would be successful for her to ambulate again. (2) Neuropathic pain: Code(s): M79.2 - Neuralgia and neuritis, unspecified Status: Acute Assessment and Plan: Patient describes pins and needles feeling. Etiology related to spinal lesions. Gabapentin 100 mg t.i.d. initiated Fall precautions P.r.n. narcotics as needed for breakthrough pain (3) Mass of left lung: Code(s): R91.8 - Other nonspecific abnormal finding of lung field Status: Acute Assessment and Plan: Patient presents with weakness and found to have an abnormal chest imaging. CT Chest showing a pleural based mass LLL with associated adjacent 8th rib destruction concerning for malignancy Pulmonology consulted but has since signed off Liver bx if family wants to continue treatment. (4) Hydronephrosis: Code(s): N13.30 - Unspecified hydronephrosis Status: Acute Assessment and Plan: CT Chest findings as above. Also noted to have hypodensity in the liver which is suggestive of a mass as well as bilateral hydronephrosis. Lumbar and Thoracic MR showing metastatic disease. CT Abd/Pelvis showing multiple hypodensities in the liver which are highly suggestive of metastatic lesions, bilateral hydronephrotic changes with thickened wall of the urinary bladder, thickened wall of the jejunal small bowel loops suggestive of enteritis, multiple hypodensities in the bones which may indicate osteopenia versus metastatic lesions versus multiple myeloma and congested vessels in the pelvis suggestive of pelvic congestion syndrome. Palomo placed prior to CT with 1L listed as output. Continue Palomo (5) COPD (chronic obstructive pulmonary disease): Code(s): J44.9 - Chronic obstructive pulmonary disease, unspecified Status: Chronic Assessment and Plan: COPD with chronic resp failure on home O2 at 2L. Stable. No wheezing. Remains on her 2L. Continue Trelegy. Albuterol prn Pulmonary has signed off (6) Hypertension: Code(s): I10 - Essential (primary) hypertension Status: Chronic Assessment and Plan: Uncertain of what medications patient takes at home (nothing listed on her home med list) Hydralazine 10 mg p.o. t.i.d. available p.r.n. Added low dose Norvasc with benefit Monitor for now (7) Hypokalemia: Code(s): E87.6 - Hypokalemia Status: Acute Assessment and Plan: Potassium 3.2 on admission that was replaced. (8) Chronic respiratory failure: Code(s): J96.10 - Chronic respiratory failure, unspecified whether with hypoxia or hypercapnia Status: Acute Assessment and Plan: Stable. As above. (9) Metastatic disease: Code(s): C79.9 - Secondary malignant neoplasm of unspecified site Status: Acute Assessment and Plan: As above Plan DVT Prophylaxis - SCDs Code status - Full Subjective Date/time seen: 08/30/24 12:54 Interval history: 69yo female with COPD, HTN and chronic resp failure on 2L O2 here for leg weakness. Pain controlled. Eating some. Family talking with hospice. Exam Narrative: AF 97.8 126/58 79 20 91% 2L Gen - thin female in NARD Chest - clear anteriorly. nml RR CV - RRR S1/S2 Abd - Soft, scaphoid - Palomo secured and urine clear. Ext - No pedal edema Neuro - awake and appropriate. Able to feed herselfe Psych - nml mood Skin - Warm and dry Objective Data Vital Signs Vital Signs: Vital Signs - 24 hr 08/29/24 14:00 08/29/24 19:55 08/29/24 20:00 Temperature 98.1 F 97.8 F Pulse Rate 83 78 Respiratory Rate 16 18 Blood Pressure 135/59 L 117/54 L Pulse Oximetry 94 95 96 Oxygen Delivery Nasal Cannula Oxygen Flow Rate 2 08/30/24 05:17 08/30/24 09:04 08/30/24 09:04 Temperature 97.8 F Pulse Rate 62 79 79 Respiratory Rate 16 20 20 Blood Pressure 126/58 L Pulse Oximetry 98 91 Oxygen Delivery Nasal Cannula Oxygen Flow Rate 2 08/30/24 09:50 Temperature Pulse Rate Respiratory Rate Blood Pressure Pulse Oximetry 91 Oxygen Delivery Nasal Cannula Oxygen Flow Rate 2 Intake/Output Intake/Output: Intake & Output 08/27/24 08/28/24 08/29/24 08/30/24 23:59 23:59 23:59 23:59 Intake Total 204 351 0228 50 Output Total 800 525 600 150 Balance -110 -115 1030 -100 Meds/Results Medications: Active Medications Generic Name Dose Route Start Last Admin Trade Name Freq PRN Reason Stop Dose Admin Acetaminophen 650 mg 08/26/24 00:45 Acetaminophen 325 Mg Tablet PO Q4H PRN Mild Pain (1-3) or Fever Hydrocodone Bitart/Acetaminophen 1 tab 08/26/24 00:45 08/30/24 09:04 Hydrocodone/Acetaminophen (*Crx) 5-325 Mg Tablet PO 1 tab Q4H PRN Administration Pain Rated 4-6 Albuterol 2.5 mg 08/26/24 03:09 Albuterol Sulfate Neb 2.5 Mg/3 Ml Inh INHALATION Q4HRT PRN Shortness Of Breath Amlodipine Besylate 2.5 mg 08/26/24 14:05 08/30/24 09:12 Amlodipine Besylate 2.5 Mg Tablet PO Not Given QAM SABI Dexamethasone 4 mg 08/29/24 19:40 08/30/24 09:05 Dexamethasone 4 Mg Tablet PO 4 mg TID SABI Administration Fluticasone/Umeclidinium/Vilanterol 1 puff 08/27/24 08:00 08/30/24 09:03 Fluticasone/Umeclidin/Vilanter 100-62.5-25 Mcg Ellipta INHALATION 1 puff DAILYRT SABI Administration Gabapentin 100 mg 08/26/24 09:00 08/30/24 09:04 Gabapentin 100 Mg Capsule PO 100 mg TID SABI Administration Hydralazine HCl 10 mg 08/26/24 06:16 Hydralazine Hcl 20 Mg/Ml Vial IV PUSH Q8H PRN Blood Pressure - High Hydromorphone HCl 0.5 mg 08/26/24 00:45 08/28/24 19:52 Hydromorphone Hcl Inj (*Crx) 2 Mg/Ml Vial IV PUSH 0.5 mg Q4H PRN Administration Pain Rated 7-10 Ondansetron HCl 4 mg 08/26/24 00:45 08/26/24 01:14 Ondansetron Inj 4 Mg/2 Ml Vial IV PUSH 4 mg Q4H PRN Administration Nausea Polyethylene Glycol 17 gm 08/28/24 17:00 08/30/24 09:05 Polyethylene Glycol 3350 17 Gm Powd.Pack PO 17 gm BID SABI Administration Senna 8.6 mg 08/28/24 21:00 08/29/24 21:25 Sennosides 8.6 Mg Tablet PO 8.6 mg HS SABI Administration Radiology Results: ITS Impressions Chest X-Ray 08/25/24 21:13 IMPRESSION: Opacity in the left upper lobe which may be focal pneumonia versus a mass. Further evaluation advised Head CT 08/25/24 21:26 IMPRESSION: No acute intracranial findings. Chest CT 08/25/24 22:32 IMPRESSION: 1. No acute cardiopulmonary pathology. 2. Mass adjacent to the left eighth rib destruction which may be metastatic versus mesothelioma. Further evaluation advised. 3. Hypodensity in the liver which is highly suggestive of a mass. Further evaluation advised. 4. Bilateral hydronephrotic changes. 5. Sclerotic changes in the first thoracic vertebra suggestive of metastatic lesion. Further evaluation advised. Abdomen/Pelvis CT 08/26/24 16:37 IMPRESSION: 1. No evidence of appendicitis, diverticulitis or intestinal obstruction. 2. Multiple hypodensities in the liver which are highly suggestive of metastatic lesions. Further evaluation advised. 3. Bilateral hydronephrotic changes with thickened wall of the urinary bladder. 4. Thickened wall of the jejunal small bowel loops suggestive of enteritis. 5. Multiple hypodensities in the bones which may indicate osteopenia versus metastatic lesions versus multiple myeloma. Further evaluation advised. 6. Constipation. 7. Congested vessels in the pelvis suggestive of pelvic congestion syndrome. Lumbar Spine MRI 08/27/24 14:53 IMPRESSION: Metastatic lesion involving the posterior elements of L4, with extradural extension. Thoracic Spine MRI 08/28/24 16:22 IMPRESSION: 1. The marrow replacing lesions consistent with metastatic disease centered at T1, T8 and T9 with prominent extraosseous extension. This most notable for secondary moderate central canal stenosis at T1, severe at T7-T9 and severe neural foraminal stenosis on the left at T1-T2, C7-T1 and T1-T2 as well as at T7-T8 and T8-T9 and on the right at T9-T10. 2. Increased cord signal at T7 and T9 on either side of the severe central canal stenosis. 3. Otherwise mild to moderate thoracic spondylosis. Labs Labs: Laboratory Results - last 24 hr 08/28/24 05:36 Total Protein 5.9 L
[2024-08-30 14:00] VITALS: BP 131/51; PULSE 98; RESP 14; TEMP 35.8; O2SAT 96
--- NOTE | 2024-08-30 14:45 | WNDPHOTO ---
PHOTO ONLY - See Nursing Notes and/ or assessments for documentation.
[2024-08-30 20:00] VITALS: O2SAT 93
[2024-08-30 20:59] LABS: Immunofixation, Serum. Normal pattern.
[2024-08-30] MEDS: SENNOSIDES 8.6 MG TABLET PO (21:01)
[2024-08-30 21:19] LABS: Albumin 3.3 g/dL (3.8-4.8); Gamma Globulin 0.8 g/dL (0.8-1.7)
[2024-08-30 22:00] VITALS: BP 153/54; PULSE 80; RESP 18; TEMP 36.8; O2SAT 96
[2024-08-31 06:00] VITALS: BP 157/60; PULSE 64; RESP 18; TEMP 36.4; O2SAT 98
[2024-08-31] MEDS: FLUTICASONE/UMECLIDIN/VILANTER 100-62.5-25 MCG ELLIPTA 1 PUFF INHALATION (07:07)
[2024-08-31 07:15] VITALS: O2SAT 91
[2024-08-31] MEDS: GABAPENTIN 100 MG CAPSULE PO ×3 (08:32→17:15)
[2024-08-31] MEDS: HYDROcodone/acetaminophen (*CRX) 5-325 MG TABLET 1 TAB PO ×3 (08:32→21:18)
[2024-08-31 08:43] VITALS: O2SAT 91
--- NOTE | 2024-08-31 11:15 | PCNFU ---
Nutrition Follow-Up Complete: Suboptimal po intake related to appetite as evidenced by pt's family report and charted intake. Goal: PO intake 50% or greater for meals and supplements Patient is progressing towards goal. We will continue current goal. Pt current nutrition is Regular with diet supplements. Nutrition recommendation: Hilton BID. Last recorded weight is 46 kg, stable. Bowel Motility: No BM reported. Labs Reviewed: Na 132, BUN 19, Cr 0.51 Meds Noted: Miralax, Senokot. Skin: Deep Tissue-Saccum Additional Notes: Patient remains on a regular diet. Oral Intake is improving. Pressure ulcer reported, recommending Hilton BID for additional kcal and protein needs. Agree with diet orders. Monitor intake, wt, labs. Follow up in 5 days.
[2024-08-31 14:00] VITALS: BP 116/56; PULSE 76; RESP 16; TEMP 36.3; O2SAT 99
--- NOTE | 2024-08-31 15:40 | P.PNIM_ITS ---
Progress Note: A&P Assessment and Plan (1) Paraplegia: Code(s): G82.20 - Paraplegia, unspecified Status: Acute Assessment and Plan: Patient presents with progressive loss of LE function with multiple falls. Chest CT showing sclerotic changes in T1 suggestive of metastatic lesion. MR T/L spine showing a metastatic disease at T1, T8 and T9 with moderate central canal stenosis at T1 and severe at T7-9. Lumbar MR showing metastatic lesion involving the posterior elements of L4, with extradural extension causing mild central canal stenosis. Neurosurgery consulted but family decided to proceed with comfort measures. Family met with hospice and they are considering comfort measures. Patient is alert and sometimes oriented but do not believe she has ability to full comprehend options for her care. Spent 30 minutes speaking with significant other and son today. Discussed care options including the risks and benefits of potential treatment options. All questions answered. Explained that the longer we delay decision, less likely spinal treatment would be successful for her to ambulate again. 08/31/2024: Patient still in decided. Family member at bedside. Lengthy discussion held however patient remains undecided. All questions and concerns answered to satisfaction. Made myself available for any further discussions. (2) Neuropathic pain: Code(s): M79.2 - Neuralgia and neuritis, unspecified Status: Acute Assessment and Plan: Patient describes pins and needles feeling. Etiology related to spinal lesions. Gabapentin 100 mg t.i.d. initiated Fall precautions P.r.n. narcotics as needed for breakthrough pain (3) Mass of left lung: Code(s): R91.8 - Other nonspecific abnormal finding of lung field Status: Acute Assessment and Plan: Patient presents with weakness and found to have an abnormal chest imaging. CT Chest showing a pleural based mass LLL with associated adjacent 8th rib destruction concerning for malignancy Pulmonology consulted but has since signed off Liver bx if family wants to continue treatment. (4) Hydronephrosis: Code(s): N13.30 - Unspecified hydronephrosis Status: Acute Assessment and Plan: CT Chest findings as above. Also noted to have hypodensity in the liver which is suggestive of a mass as well as bilateral hydronephrosis. Lumbar and Thoracic MR showing metastatic disease. CT Abd/Pelvis showing multiple hypodensities in the liver which are highly suggestive of metastatic lesions, bilateral hydronephrotic changes with thickened wall of the urinary bladder, thickened wall of the jejunal small bowel loops suggestive of enteritis, multiple hypodensities in the bones which may indicate osteopenia versus metastatic lesions versus multiple myeloma and congested vessels in the pelvis suggestive of pelvic congestion syndrome. Palomo placed prior to CT with 1L listed as output. Continue Palomo (5) COPD (chronic obstructive pulmonary disease): Code(s): J44.9 - Chronic obstructive pulmonary disease, unspecified Status: Chronic Assessment and Plan: COPD with chronic resp failure on home O2 at 2L. Stable. No wheezing. Remains on her 2L. Continue Trelegy. Albuterol prn Pulmonary has signed off (6) Hypertension: Code(s): I10 - Essential (primary) hypertension Status: Chronic Assessment and Plan: Uncertain of what medications patient takes at home (nothing listed on her home med list) Hydralazine 10 mg p.o. t.i.d. available p.r.n. Added low dose Norvasc with benefit Monitor for now (7) Hypokalemia: Code(s): E87.6 - Hypokalemia Status: Acute Assessment and Plan: Potassium 3.2 on admission that was replaced. (8) Chronic respiratory failure: Code(s): J96.10 - Chronic respiratory failure, unspecified whether with hypoxia or hypercapnia Status: Acute Assessment and Plan: Stable. As above. (9) Metastatic disease: Code(s): C79.9 - Secondary malignant neoplasm of unspecified site Status: Acute Assessment and Plan: As above Plan DVT Prophylaxis -heparin subQ 5000 units t.i.d. Code status - Full Subjective Date/time seen: 08/31/24 15:40 Interval history: No acute overnight events. Patient reports pain is controlled. No strength in the lower extremities Review of Systems Review of Systems: All systems reviewed & are unremarkable except as noted in HPI and below (Subjective) Exam Const: General: comfortable and no acute distress HENMT: Mouth: Yes moist mucous membranes Eyes: Pupils: Equal, round and reactive pupils present Neck: Neck: supple Resp: Effort & Inspection: normal respiratory effort Auscultation: clear to auscultation bilaterally Cardio: Rate: regular rate Rhythm: regular rhythm GI: GI Palp: Yes Soft to palpation Extrem: General: no edema Objective Data Vital Signs Vital Signs: Vital Signs - 24 hr 08/30/24 20:00 08/30/24 22:00 08/31/24 06:00 Temperature 98.2 F 97.5 F L Pulse Rate 80 64 Respiratory Rate 18 18 Blood Pressure 153/54 H 157/60 H Pulse Oximetry 93 96 98 Oxygen Delivery Nasal Cannula Oxygen Flow Rate 2 Fraction of Inspired Oxygen 08/31/24 07:15 08/31/24 08:43 08/31/24 14:00 Temperature 97.4 F L Pulse Rate 76 Respiratory Rate 16 Blood Pressure 116/56 L Pulse Oximetry 91 91 99 Oxygen Delivery Nasal Cannula Nasal Cannula Oxygen Flow Rate 2 2 Fraction of Inspired Oxygen 28 Intake/Output Intake/Output: Intake & Output 08/28/24 08/29/24 08/30/24 08/31/24 23:59 23:59 23:59 23:59 Intake Total 410 1630 730 810 Output Total 525 810 636 1927 Balance -115 1030 580 -1890 Meds/Results Medications: Active Medications Generic Name Dose Route Start Last Admin Trade Name Freq PRN Reason Stop Dose Admin Acetaminophen 650 mg 08/26/24 00:45 Acetaminophen 325 Mg Tablet PO Q4H PRN Mild Pain (1-3) or Fever Hydrocodone Bitart/Acetaminophen 1 tab 08/26/24 00:45 08/31/24 12:53 Hydrocodone/Acetaminophen (*Crx) 5-325 Mg Tablet PO 1 tab Q4H PRN Administration Pain Rated 4-6 Albuterol 2.5 mg 08/26/24 03:09 Albuterol Sulfate Neb 2.5 Mg/3 Ml Inh INHALATION Q4HRT PRN Shortness Of Breath Amlodipine Besylate 2.5 mg 08/26/24 14:05 08/31/24 08:31 Amlodipine Besylate 2.5 Mg Tablet PO 2.5 mg QAM SABI Administration Dexamethasone 4 mg 08/29/24 19:40 08/31/24 12:50 Dexamethasone 4 Mg Tablet PO 4 mg TID SABI Administration Fluticasone/Umeclidinium/Vilanterol 1 puff 08/27/24 08:00 08/31/24 07:07 Fluticasone/Umeclidin/Vilanter 100-62.5-25 Mcg Ellipta INHALATION 1 puff DAILYRT SABI Administration Gabapentin 100 mg 08/26/24 09:00 08/31/24 12:50 Gabapentin 100 Mg Capsule PO 100 mg TID SABI Administration Heparin Sodium (Porcine) 5,000 units 08/31/24 22:00 Heparin Sodium 5,000 Units/Ml Vial SUB-Q Q8HR SABI Hydralazine HCl 10 mg 08/26/24 06:16 Hydralazine Hcl 20 Mg/Ml Vial IV PUSH Q8H PRN Blood Pressure - High Hydromorphone HCl 0.5 mg 08/26/24 00:45 08/28/24 19:52 Hydromorphone Hcl Inj (*Crx) 2 Mg/Ml Vial IV PUSH 0.5 mg Q4H PRN Administration Pain Rated 7-10 Ondansetron HCl 4 mg 08/26/24 00:45 08/26/24 01:14 Ondansetron Inj 4 Mg/2 Ml Vial IV PUSH 4 mg Q4H PRN Administration Nausea Polyethylene Glycol 17 gm 08/28/24 17:00 08/31/24 08:32 Polyethylene Glycol 3350 17 Gm Powd.Pack PO 17 gm BID SABI Administration Senna 8.6 mg 08/28/24 21:00 08/30/24 21:01 Sennosides 8.6 Mg Tablet PO 8.6 mg HS SABI Administration Radiology Results: ITS Impressions Chest X-Ray 08/25/24 21:13 IMPRESSION: Opacity in the left upper lobe which may be focal pneumonia versus a mass. Further evaluation advised Head CT 08/25/24 21:26 IMPRESSION: No acute intracranial findings. Chest CT 08/25/24 22:32 IMPRESSION: 1. No acute cardiopulmonary pathology. 2. Mass adjacent to the left eighth rib destruction which may be metastatic ve rsus mesothelioma. Further evaluation advised. 3. Hypodensity in the liver which is highly suggestive of a mass. Further evaluation advised. 4. Bilateral hydronephrotic changes. 5. Sclerotic changes in the first thoracic vertebra suggestive of metastatic lesion. Further evaluation advised. Abdomen/Pelvis CT 08/26/24 16:37 IMPRESSION: 1. No evidence of appendicitis, diverticulitis or intestinal obstruction. 2. Multiple hypodensities in the liver which are highly suggestive of metastatic lesions. Further evaluation advised. 3. Bilateral hydronephrotic changes with thickened wall of the urinary bladder. 4. Thickened wall of the jejunal small bowel loops suggestive of enteritis. 5. Multiple hypodensities in the bones which may indicate osteopenia versus metastatic lesions versus multiple myeloma. Further evaluation advised. 6. Constipation. 7. Congested vessels in the pelvis suggestive of pelvic congestion syndrome. Lumbar Spine MRI 08/27/24 14:53 IMPRESSION: Metastatic lesion involving the posterior elements of L4, with extradural extension. Thoracic Spine MRI 08/28/24 16:22 IMPRESSION: 1. The marrow replacing lesions consistent with metastatic disease centered at T1, T8 and T9 with prominent extraosseous extension. This most notable for secondary moderate central canal stenosis at T1, severe at T7-T9 and severe neural foraminal stenosis on the left at T1-T2, C7-T1 and T1-T2 as well as at T7-T8 and T8-T9 and on the right at T9-T10. 2. Increased cord signal at T7 and T9 on either side of the severe central canal stenosis. 3. Otherwise mild to moderate thoracic spondylosis. Labs Labs: Laboratory Results - last 24 hr 08/28/24 05:36 Albumin 3.3 L Ktzux-4-Voxlogkhm 0.4 H Lypqp-8-Thbasmljb 0.8 Lrcp-5-Mupverjb 0.3 L Pfoh-2-Oxlntdej 0.3 Gamma Globulins 0.8 PEP Interpretation See note Serum Immunofixation Normal pattern.
[2024-08-31 20:00] VITALS: O2SAT 92
[2024-08-31] MEDS: SENNOSIDES 8.6 MG TABLET PO (21:17)
[2024-08-31 22:00] VITALS: BP 106/76; PULSE 71; RESP 18; TEMP 36.4; O2SAT 96
[2024-09-01] VITALS (8 sets, daily range): BP systolic 108–143; BP diastolic 65–77; PULSE 53–88; RESP 18–20; TEMP 36.8; O2SAT 91–99
[2024-09-01] MEDS: FLUTICASONE/UMECLIDIN/VILANTER 100-62.5-25 MCG ELLIPTA 1 PUFF INHALATION (08:14)
[2024-09-01] MEDS: GABAPENTIN 100 MG CAPSULE PO ×3 (08:37→17:07)
[2024-09-01] MEDS: HYDROcodone/acetaminophen (*CRX) 5-325 MG TABLET 1 TAB PO ×3 (08:41→20:55)
[2024-09-01] MEDS: ALBUTEROL SULFATE NEB 2.5 MG/3 ML INH INHALATION (12:18)
--- NOTE | 2024-09-01 13:43 | WNDPHOTO ---
PHOTO ONLY - See Nursing Notes and/ or assessments for documentation.
--- NOTE | 2024-09-01 14:07 | P.DS_ITS ---
DS: Admitting Diagnosis Discharge Date 09/01/2024 Admitting Diagnosis Weakness DS: Discharge Diagnosis Discharge Diagnosis (1) Metastatic disease: Code(s): C79.9 - Secondary malignant neoplasm of unspecified site Status: Acute DS: Summary Hospital Course Hospital Course: A 69-year-old female with history of COPD, hypertension, hyperlipidemia, CKD, chronic respiratory failure with hypoxia presents with bilateral leg pain and numbness for a few days which progressed to weakness. CT demonstrated sclerotic changes in T1 suggestive of metastatic lesion. MR T/L-spine showing metastatic disease at T1-T8 and 9 with moderate central canal stenosis at T1 and severe at T7 through 8 9. Pleural based mass at left lower lobe concerning for malignancy. Liver mass also identified as well as bilateral hydronephrosis. Ultimately, patient in significant other decided to pursue hospice. Discharged in stable condition. Time Spent with Patient Time attestation: Total time spent providing and/or coordinating discharge services: Time spent: Greater than 30 minutes Exam Const: General: comfortable and no acute distress Other: A&O x3 HENMT: Mouth: Yes moist mucous membranes Eyes: Pupils: Equal, round and reactive pupils present Neck: Neck: supple Resp: Effort & Inspection: normal respiratory effort Auscultation: clear to auscultation bilaterally Cardio: Rate: regular rate Rhythm: regular rhythm Heart sounds: no gallops, no murmurs and no rubs GI: GI Palp: Yes Soft to palpation Neuro: Other: Lower extremities 0/5 motor strength Extrem: General: no edema Discharge Plan Discharge Attending physician on discharge: Brinda Camarillo Consulting providers: Janay Saavedra; Mariel Dupree; Mayito Francois; Yanet Black Discharging Clinician: Brinda Camarillo Patient Disposition: SNF Activity: june shower Diet: as tolerated Patient Language: Slovenian Stand Alone Forms: General Discharge Information Discharge Medications: New gabapentin 100 mg Capsule 100 mg PO TID Qty: 30 0RF hydrocodone-acetaminophen 5-325 mg Tablet 1 tablet PO Q4H PRN (Reason: Pain Rated 4-6) Qty: 10 0RF Continued albuterol sulfate 90 mcg/actuation HFA aerosol inhaler 1 puff INHALATION Q4H PRN (Reason: shortness of breath or wheezing) [employer] 160-9-4.8 mcg/actuation HFA aerosol inhaler 2 inh INHALATION BID Discontinued atorvastatin 10 mg tablet 10 mg PO QPM Date of admission: 08/26/24 00:45 Primary Care Provider: UNKNOWN,DOCTOR Admitting Provider: Eb Hoover Attending physician on admission: Eb Hoover Condition: Critical Hospitalist MIPS Heart Failure (Exclusion) Patient has history of Heart Transplant or Left Ventricular Assistive Device?: No IF YES, STOP HERE Heart Failure (Qualifier) Patient has current or prior documentation of LVEF less than or equal to 40%, or mod/servere depressed LVSF?: No IF NO, STOP HERE
[2024-09-01] MEDS: SENNOSIDES 8.6 MG TABLET PO (20:55)
[2024-09-02 06:00] VITALS: BP 150/67; PULSE 60; RESP 18; TEMP 36.9; O2SAT 98
[2024-09-02] MEDS: FLUTICASONE/UMECLIDIN/VILANTER 100-62.5-25 MCG ELLIPTA 1 PUFF INHALATION (08:19)
[2024-09-02 08:20] VITALS: PULSE 90; RESP 20; O2SAT 98
[2024-09-02] MEDS: HYDROcodone/acetaminophen (*CRX) 5-325 MG TABLET 1 TAB PO ×2 (09:20→14:06)
[2024-09-02] MEDS: GABAPENTIN 100 MG CAPSULE PO ×2 (09:21→12:27)
--- NOTE | 2024-09-02 12:58 | P.DS_ITS ---
DS: Admitting Diagnosis Discharge Date 09/02/2024 Admitting Diagnosis Weakness DS: Discharge Diagnosis Discharge Diagnosis (1) Metastatic disease: Code(s): C79.9 - Secondary malignant neoplasm of unspecified site Status: Acute DS: Summary Hospital Course Hospital Course: A 69-year-old female with history of COPD, hypertension, hyperlipidemia, CKD, chronic respiratory failure with hypoxia presents with bilateral leg pain and numbness for a few days which progressed to weakness. CT demonstrated sclerotic changes in T1 suggestive of metastatic lesion. MR T/L-spine showing metastatic disease at T1-T8 and 9 with moderate central canal stenosis at T1 and severe at T7 through 8 9. Pleural based mass at left lower lobe concerning for malignancy. Liver mass also identified as well as bilateral hydronephrosis. Ultimately, patient in significant other decided to pursue hospice. Discharged in stable condition. Time Spent with Patient Time attestation: Total time spent providing and/or coordinating discharge services: Exam Const: General: comfortable and no acute distress Other: A&O x3 HENMT: Mouth: Yes moist mucous membranes Eyes: Pupils: Equal, round and reactive pupils present Neck: Neck: supple Resp: Effort & Inspection: normal respiratory effort Auscultation: clear to auscultation bilaterally Cardio: Rate: regular rate Rhythm: regular rhythm Heart sounds: no gallops, no murmurs and no rubs GI: GI Palp: Yes Soft to palpation Neuro: Other: Lower extremities 0/5 motor strength Extrem: General: no edema Discharge Plan Discharge Attending physician on discharge: Brinda Camarillo Consulting providers: Janay Saavedra; Mariel Dupree; Mayito Francois; Yanet Black Discharging Clinician: Brinda Camarillo Patient Disposition: Hospice - Medical Facility Activity: june shower Diet: as tolerated Patient Language: Occitan Stand Alone Forms: General Discharge Information Discharge Medications: New gabapentin 100 mg Capsule 100 mg PO TID Qty: 30 0RF hydrocodone-acetaminophen 5-325 mg Tablet 1 tablet PO Q4H PRN (Reason: Pain Rated 4-6) Qty: 10 0RF Continued albuterol sulfate 90 mcg/actuation HFA aerosol inhaler 1 puff INHALATION Q4H PRN (Reason: shortness of breath or wheezing) [employer] 160-9-4.8 mcg/actuation HFA aerosol inhaler 2 inh INHALATION BID Discontinued atorvastatin 10 mg tablet 10 mg PO QPM Date of admission: 08/26/24 00:45 Primary Care Provider: UNKNOWN,DOCTOR Admitting Provider: Eb Hoover Attending physician on admission: Eb Hoover Condition: Stable Hospitalist MIPS Heart Failure (Exclusion) Patient has history of Heart Transplant or Left Ventricular Assistive Device?: No IF YES, STOP HERE Heart Failure (Qualifier) Patient has current or prior documentation of LVEF less than or equal to 40%, or mod/servere depressed LVSF?: No IF NO, STOP HERE
[2024-09-02 14:00] VITALS: BP 114/60; PULSE 85; RESP 20; TEMP 36.7; O2SAT 96
--- NOTE | 2024-09-02 15:44 | WNDPHOTO ---
PHOTO ONLY - See Nursing Notes and/ or assessments for documentation.
== END 2024-09-02 16:38 | disposition hospice, inpatient (51) | DRG 543 ==
LOC: ANHED 19:33 → ANH3MED 08-26 01:18
PROVIDERS: Internal Medicine; Nurse Practitioner Adult Health; Admitting Provider Internal Medicine; Emergency Provider Student in an Organized Health Care Education/Training Program; Visit Provider General Practice
DX: C79.51 Secondary malignant neoplasm of bone (principal); C34.32 Malignant neoplasm of lower lobe, left bronchus or lung; C78.7 Secondary malignant neoplasm of liver and intrahepatic bile duct; G82.20 Paraplegia, unspecified; J96.11 Chronic respiratory failure with hypoxia; N13.30 Unspecified hydronephrosis; G58.8 Other specified mononeuropathies; M48.04 Spinal stenosis, thoracic region; M48.061 Spinal stenosis, lumbar region without neurogenic claudication; J44.9 Chronic obstructive pulmonary disease, unspecified; I12.9 Hypertensive chronic kidney disease with stage 1 through stage 4 chronic kidney disease, or unspecified chronic kidney disease; N18.9 Chronic kidney disease, unspecified; E87.6 Hypokalemia; R91.8 Other nonspecific abnormal finding of lung field; E78.5 Hyperlipidemia, unspecified; Z99.81 Dependence on supplemental oxygen; Z87.891 Personal history of nicotine dependence
CPT/HCPCS: 36415; 70450; 71045; 71250; 72148; 72157; 74178; 80053; 81001; 82607; 82746; 82784; 83036; 83735; 84100; 84155; 84165; 84439; 84443; 84480; 85025; 85610; 85652; 85730; 86140; 86334; 93005; 94640; 96361; 96374; 96375; 99285; A9270; A9577; J1100; J1171; J1650; J2405; J3360; J7120; J8540; Q9967